=== PATIENT | male | born 1955 | race Caucasian/White ===

== ENCOUNTER → 2018-04-13 | Outpatient (CLI) | payer BC ==
--- NOTE | 2018-04-13 13:31 | CT ---
EXAMINATION TYPE: CT abdomen pelvis w con DATE OF EXAM: 04/13/2018 COMPARISON: None HISTORY: Abdominal pain and nausea CT DLP: 2656 mGycm, Automated Exposure Control for Dose Reduction was Utilized. CONTRAST: CT scan of the abdomen and pelvis is performed with oral and with IV Contrast, patient injected with 100 ml mL of Isovue 300. FINDINGS: LUNG BASES: Coronary artery calcification and/or stents is present RCA distribution. LIVER/GB: Liver is heterogeneously isodense relative to spleen consistent with diffuse fatty infiltra tion. PANCREAS: No significant abnormality is seen. SPLEEN: No significant abnormality is seen. ADRENALS: Left adrenal mass measures 2.7 x 2.0 cm axial image 28, Hounsfield units average 14 on post contrast injection. KIDNEYS: There is symmetric cortical medullary uptake and excretion from both kidneys without hydrone phrosis seen bilaterally there are subcentimeter hypodense lesions seen bilaterally favoring simple c ysts. There is nonspecific 2.1 cm slightly hypodense lesion laterally mid to lower pole level seen be st series 7 image 38 favoring proteinaceous cyst. Solid lesion at this level cannot be excluded. Foll ow-up is advised. BOWEL: Oral contrast reaches level of mid left colon. There is no suspicious small or large bowel dil atation seen. Diverticula are scattered throughout the colon most prominent in the sigmoid colon. No CT evidence for acute diverticulitis. PROSTATE/SEMINAL VESICLES: No gross abnormality seen. LYMPH NODES: No greater than 1cm abdominal or pelvic lymph nodes are appreciated. OSSEOUS STRUCTURES: No significant abnormality is seen. OTHER: Mild to moderate calcified plaque of aorta extends into branch vessels. Focal ectasia is seen. No greater than 3 cm aneurysmal change is present. IMPRESSION: 1. No bowel obstruction. No suspicious acute finding is seen to account for patient's symptoms. Diver ticulosis without convincing evidence for acute diverticulitis. 2. Nonspecific right renal lesion favor proteinaceous cyst cannot exclude solid mass or neoplasm. Fol low-up advised. 3. Nonspecific 2.7 cm left adrenal mass cannot rule out malignant etiology, follow-up adrenal protoco l CT or MRI is recommended.
== END | disposition home or self-care (01) ==
LOC: RADCTMAIN 10:01
PROVIDERS: ATTEND Family Medicine
DX: N28.9 Disorder of kidney and ureter, unspecified (principal); E27.9 Disorder of adrenal gland, unspecified
CPT/HCPCS: 82565; 84520; 74177; 36415; Q9967

== ENCOUNTER 2018-04-24 07:47 | Day surgery (SDC) | payer BC ==
[2018-04-20 15:10] VITALS: BMI 31.6
[2018-04-24 08:10] VITALS: TEMP 97.8
[2018-04-24] MEDS ORDERED: LACTATED RINGERS 1,000 ML IV ONE (08:10)
[2018-04-24 08:13] LABS: Glucose,Whole Blood 98 mg/dL (75-99)
[2018-04-24] MEDS ORDERED: LIDOCAINE 1% INJ 10MG/ML (20 ML MDV) ONE (09:07)
[2018-04-24] MEDS ORDERED: fentaNYL (PF) 50 MCG/ML 2 ML AMP ONE (09:07)
[2018-04-24] MEDS ORDERED: PROPOFOL 10 MG/ML 20 ML VIAL IV ONE (09:07)
[2018-04-24] MEDS ORDERED: MIDAZOLAM 2 MG/2 ML VIAL ONE (09:07)
--- NOTE | 2018-04-24 09:10 | P.GSHP ---
History of Present Illness H&P Date: 04/24/18 Chief Complaint: GI bleed This is a 62-year-old male who presents today for colonoscopy. Patient has history of GI bleed. He has had problems with diverticulosis in the past. 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, on antibiotics for infection(not sure what kind of infection) History of Any Multi-Drug Resistant Organisms: None Reported Past Surgical History: Hernia Repair, Tonsillectomy Past Anesthesia/Blood Transfusion Reactions: No Reported Reaction Smoking Status: Never smoker - Past Family History Father Family Medical History: Cancer Mother Family Medical History: Deep Vein Thrombosis (DVT) Medications and Allergies Home Medications Medication Instructions Recorded Confirmed Type Aspirin 325 mg PO DAILY 04/20/18 04/24/18 History Atorvastatin [Lipitor] 20 mg PO HS 04/20/18 04/24/18 History Losartan/Hydrochlorothiazide 1 each PO QAM 04/20/18 04/24/18 History [Hyzaar 100-25 Tablet] Sulfamethox(Dose Unknown) 1 tab PO BID 04/20/18 04/24/18 History amLODIPine [Norvasc] 10 mg PO HS 04/20/18 04/24/18 History metFORMIN HCL [Glucophage] 500 mg PO BID 04/20/18 04/24/18 History Allergies Allergy/AdvReac Type Severity Reaction Status Date / Time No Known Allergies Allergy Verified 04/24/18 08:01 Surgical - Exam Vital Signs Temp Pulse Resp BP Pulse Ox 97.8 F 76 18 153/95 98 04/24/18 08:08 04/24/18 08:08 04/24/18 08:08 04/24/18 08:08 04/24/18 08:08 - General well developed, no distress - Eyes PERRL - ENT normal pinna - Neck no masses - Respiratory normal expansion - Cardiovascular Rhythm: regular - Abdomen Abdomen: soft, non tender Assessment and Plan Assessment: GI bleed. We'll perform colonoscopy
--- NOTE | 2018-04-24 09:35 | P.OP ---
Date of Procedure: 04/24/18 Preoperative Diagnosis: GI bleed Postoperative Diagnosis: Severe diverticulosis of sigmoid and left colon Sigmoid polyp Left colon polyp Procedure(s) Performed: Colonoscopy Anesthesia: MAC Surgeon: Leighton Andrew Pathology: other (Sigmoid colon, multiple) Condition: stable Disposition: PACU Description of Procedure: The patient's placed on the endoscopy table in the lateral position. He received IV sedation. Digital rectal exam was performed which revealed no abnormalities. The flexible colonoscope was then placed patient anus and passed through the colon. The scope was then passed into the right colon secondary to a large amount of stool. Scope was withdrawn and the transverse colon was examined. There was scattered diverticuli transverse colon. The in the descending colon there was significant diverticular changes. There was a polyp seen this removed with a combination of the cold forcep and snare. forcep. Scope was brought back and the sigmoid colon there is extensive diverticular changes. Another polyp was seen in this is removed with the snare. Scope summer back the rectum this appeared normal. Scope withdrawn for patient.
[2018-04-24 09:46] VITALS: PULSE 55; RESP 16
[2018-04-24 09:58] VITALS: BP 137/86
--- NOTE | 2018-04-26 14:42 | CDI ---
Outpatient Documentation Clarification Form Date: 04/26/18 CDS/Sales Teacher Name: Elina Plummer Phone: If any questions, call Lynette Marr Case Management Rn at [phone] Patient Name: Mor Stevenson Admit Date: 04/24/18 Discharge Date: 04/24/18 ATTENTION: The [facility] Coding Staff appreciate your assistance in clarifying documentation. Please respond to the clarification below the line at the bottom and electronically sign. The [facility] Coding staff will review the response and follow-up if needed. Please note: Queries are made part of the Legal Health Record. If you have any questions, please contact the Case Management Rn. Dear Dr. Andrew, What is the source of the GI bleed? Possibly causes include diverticulosis or tubular adenoma. Multiple coding resources, that we are required to follow, state that the physician should identify a source and the lozenge maker may not assume. Thank you for your kind consideration. The bleeding was most likely due to the diverticulosis. However no active bleeding was seen MTDD
== END 2018-04-24 10:23 | disposition home or self-care (01) ==
LOC: ORWHC2ENDO 07:47
PROVIDERS: ATTEND Surgery
DX: K92.2 Gastrointestinal hemorrhage, unspecified (principal); D12.4 Benign neoplasm of descending colon; D12.5 Benign neoplasm of sigmoid colon; K57.31 Diverticulosis of large intestine without perforation or abscess with bleeding; E11.9 Type 2 diabetes mellitus without complications; K21.9 Gastro-esophageal reflux disease without esophagitis; E78.5 Hyperlipidemia, unspecified; I10 Essential (primary) hypertension; R01.1 Cardiac murmur, unspecified; M10.9 Gout, unspecified; B99.9 Unspecified infectious disease; Z79.84 Long term (current) use of oral hypoglycemic drugs; Z79.82 Long term (current) use of aspirin; Z79.899 Other long term (current) drug therapy
CPT/HCPCS: 88305; 45380; 45385; J2250; J2001; J3010; J2704

== ENCOUNTER → 2018-04-27 | Outpatient (CLI) | payer BC ==
--- NOTE | 2018-04-27 15:44 | MR ---
MR abdomen with and without contrast HISTORY: Change in bowel habits, Abdominal pain and nausea Multiplanar multisequence and postcontrast images obtained through the abdomen following [address] IV. Correlation to prior exam CT abdomen pelvis 04/13/2018 The gastric wall thickening seen on CT is again noted. Small bowel folds also appear thickened in the left upper quadrant. There is no ascites. Lung bases are clear. There may be a small hiatal hernia. The kidneys show multiple spherical foci of varying signal intensity on T1 and T2-weighted sequences, these areas may represent underlying proteinaceous cysts were simple cysts. Lower pole lesion at the right kidney measures approximately 2.8 cm, second immediately adjacent focus measuring 2 cm is note d and there is solid component that shows enhancement in the larger of the 2 lesions. No retroperiton eal adenopathy. The aorta is not dilated. The liver shows no mass, and it is enlarged. Gallbladder is normal. Pancreas and spleen are normal. S ignal drop in the out of phase imaging in the left adrenal gland is compatible with adenoma measures approximately 2.7 cm. Right adrenal gland is normal. Degenerative disc changes are noted in the visua lized spine. IMPRESSION: There may be an underlying enteritis with the small bowel, consider endoscopy for better evaluation of possible abnormal gastric wall thickening. Right renal mass is suspicious, consider uro logy consult. Left adrenal adenoma.
== END | disposition home or self-care (01) ==
LOC: RADMRIMAIN 09:37
PROVIDERS: ATTEND Family Medicine
DX: D35.02 Benign neoplasm of left adrenal gland (principal)
CPT/HCPCS: 74183; A9585

== ENCOUNTER → 2019-11-19 | Outpatient (CLI) | payer BC | END | disposition home or self-care (01) | LOC: LABWHC1 11:19 | PROVIDERS: ATTEND Internal Medicine Interventional Cardiology | DX: Z11.59 Encounter for screening for other viral diseases (principal) | CPT/HCPCS: 87635 ==

== ENCOUNTER 2019-11-21 06:24 | Day surgery (SDC) | payer BC ==
[~2019-11-21 06:24] MED LIST: ALPRAZolam 0.25 MG TAB PO PRN; ALPRAZolam 0.5 MG TAB PO PRN; ASPIRIN 325 MG TAB PO STA; ATORVASTATIN 80 MG TAB PO STA; NITROGLYCERIN SL TABS 0.4 MG TAB SUBLINGUAL PRN; SODIUM CHLORIDE 0.9% 1,000 ML in EMPTY BAG 1 BAG IV ONE
[2019-11-21 07:10] LABS: Glucose,Whole Blood 100 mg/dL (75-99)
[2019-11-21] MEDS ORDERED: SODIUM CHLORIDE 0.9% 1,000 ML IV ONE (07:18)
[2019-11-21] MEDS ORDERED: fentaNYL (PF) 50 MCG/ML 2 ML AMP IV ONE (07:30)
[2019-11-21] MEDS ORDERED: LIDOCAINE 1% INJ 10MG/ML (20 ML MDV) SQ ONE (07:35)
[2019-11-21] MEDS ORDERED: MIDAZOLAM 2 MG/2 ML VIAL IVP ONE (07:36)
[2019-11-21] MEDS ORDERED: VERAPAMIL SYRINGE (5 MG/10 ML) INTRAARTER ONE (07:36)
[2019-11-21 07:41] LABS: Basophils % (A) 1 %; Eosinophils # (A) 0.2 k/uL (0-0.7); Eosinophils % (A) 3 %; HCT 46.4 % (39.0-53.0); HGB 15.5 gm/dL (13.0-17.5); Lymphocytes # (A) 2.5 k/uL (1.0-4.8); Lymphocytes % (A) 31 %; MCH 29.6 pg (25.0-35.0); MCHC 33.4 g/dL (31.0-37.0); MCV 88.6 fL (80.0-100.0); Mean Platelet Volume 8.2; Monocytes # (A) 0.6 k/uL (0-1.0); Monocytes % (A) 8 %; Neutrophils # (A) 4.6 k/uL (1.3-7.7); Neutrophils % (A) 55 %; Platelet Count 183 k/uL (150-450); RBC 5.24 m/uL (4.30-5.90); RDW 14.1 % (11.5-15.5); WBC 8.2 k/uL (3.8-10.6)
[2019-11-21] MEDS ORDERED: BIVALIRUDIN BOLUS 250 MG/50 ML IV ONE (07:47)
[2019-11-21] MEDS ORDERED: BIVALIRUDIN 250 MG in SODIUM CHLORIDE 0.9% 50 ML IV ONE (07:51)
[2019-11-21 07:52] LABS: Calcium 8.9 mg/dL (8.4-10.2)
[2019-11-21] MEDS ORDERED: PRASUGREL 10 MG TAB PO ONE (07:52)
[2019-11-21] MEDS ORDERED: IOPAMIDOL-370 125ML BTL INJ ONE (08:01)
[2019-11-21] MEDS ORDERED: NITROGLYCERIN 1000MCG/10ML SYRINGE INTRACORON ONE (08:07)
[2019-11-21] MEDS ORDERED: IOPAMIDOL-370 100ML BTL INJ ONE (08:27)
[2019-11-21] MEDS ORDERED: MAG HYDROX/AL HYDROX/SIMETH 30 ML CUP PO PRN (08:44)
[2019-11-21] MEDS ORDERED: NITROGLYCERIN SL TABS 0.4 MG TAB SUBLINGUAL PRN (08:44)
[2019-11-21] MEDS ORDERED: RX INFO: IV CONTRAST WAS GIVEN 1 EACH MISC MISCELLANE PRN (08:44)
[2019-11-21] MEDS ORDERED: ATROPINE SULFATE 0.1 MG/ML 10ML SYRINGE IV PRN (08:44)
[2019-11-21] MEDS ORDERED: ZOLPIDEM 5 MG TAB PO PRN (08:44)
[2019-11-21] MEDS ORDERED: SODIUM CHLORIDE 0.9% 1,000 ML IV SCH (08:45)
--- NOTE | 2019-11-21 09:56 | CC ---
CARDIAC CATHETERIZATION REPORT Mr. Moore is a 64-year-old male with known history of hypertension, hyperlipidemia, diabetes mellitus, and a family history of premature coronary artery disease who has been complaining of progressive exertional chest discomfort as well as dyspnea on exertion. In view of that, recommendation made regarding cardiac catheterization. The procedures, risks, and complication were discussed with the patient, who was in full understanding and agreement. PROCEDURE: Patient was brought to the hemodialysis lab technician in a fasting semi-sedated state after receiving fentanyl and Benadryl and achieving moderate conscious sedated state. Using Xylocaine anesthesia and Seldinger technique, a 6-Georgian sheath was introduced in the right radial artery. Selective right and left coronary angiography performed using 5-Georgian 3.5 bend right and left Luz catheter. Multiple views of the coronary artery including hemiaxial views were obtained. Following that, a 6-Georgian FR4 guiding catheter was introduced into the system and the aortic valve was crossed and left ventricular end-diastolic pressure was calculated. Following that, angioplasty and stenting was performed. Of note, the patient received intra-arterial verapamil as well as intravenous Angiomax per protocol at the start of this angioplasty. FINDINGS: FLUOROSCOPY: There was severe calcification involving all the coronary arteries. LEFT MAIN: This is a short size vessel, bifurcating into left circumflex, left anterior descending artery. Left main coronary artery has no evidence of high-grade stenosis. LEFT ANTERIOR DESCENDING ARTERY: This is a large-sized vessel, reaching toward the apex with a wraparound apex segment giving rise to 2 diagonal branches. The first one is very proximal, the second diagonal branch is small in caliber. The left anterior descending artery after the diagonal branch at the takeoff and at the takeoff of the first septal warehouse team leader, has an 80% stenosis. The rest of the vessel has no high-grade stenosis. LEFT CIRCUMFLEX: This is a nondominant vessel, moderate in caliber, giving rise to 2 moderate to small obtuse marginal branch. The left circumflex proximally has 20% to 30% plaque. The rest of the vessel has no high-grade stenosis. RIGHT CORONARY ARTERY: This is a large dominant vessel, bifurcating into PDA, posterolateral segment and branches. The right coronary artery is calcified and the mid segment has a 99% stenosis. There is another 40% to 50% plaque in the mid segment. There is slow flow into the large PDA and PLV. COLLATERALS: There is collaterals from the left coronary system toward the right distal coronary artery. HEMODYNAMICS: There was a 20 mm gradient across the aortic valve. The ventricular end- diastolic pressure was 10 mmHg. LEFT VENTRICULOGRAM: Left ventricular was not performed. CONCLUSION: 1. Calcified coronary arteries. 2. Critical stenosis involving the proximal right coronary artery. 3. Significant stenosis in the proximal LAD. 4. Mild disease in the left circumflex. 5. Mild aortic stenosis. RECOMMENDATION: In view of finding anatomy, I recommend proceeding with angioplasty and stenting of the right coronary artery. The procedures, risks, and complication were discussed with the patient who is in full understanding and agreement. MMODL / IJN: [id number] /
--- NOTE | 2019-11-21 11:16 | PTCA ---
PERCUTANEOUSTRANS CORORONARY ANGIOGRAPHY Mr. Stevenson is a 64-year-old male with known history of hypertension, hyperlipidemia, diabetes mellitus, and a family history of premature coronary artery disease who presented with symptoms of progressive exertional chest discomfort and dyspnea on exertion. He underwent cardiac catheterization, was found to have critical stenosis involving the proximal right coronary artery and significant disease in the proximal LAD. The option of surgery versus coronary angioplasty and stenting were discussed with the patient who is in favor proceeding with angioplasty. The procedures, risks, and complication were discussed with the patient, who is in full understanding and agreement. PROCEDURE: A 6-Grenadian FR4 guiding catheter introduced into the system after cannulating the right coronary ostium, a 0.014 balanced medium weight J-wire was advanced across the lesion, positioned distally, then a 3.0 x 15 mm Trek balloon was advanced and one inflation at 10 atmospheres was done, following that the balloon was removed and another 0.014 balanced medium weight J-wire was advanced next to the first one in a leigh ann fashion and positioned distally. Subsequently, a 4.0 x 18 mm Xience Muriel stent was advanced, deployed and postdilated at 18 atmospheres. Following that, the balloon was removed and a 4.0 x 12 mm Xience Muriel stent was deployed proximal to the first one and post dilated at 16 atmospheres. Following that, a 4.5 x 15 mm NC Trek balloon was advanced and one inflation was done at 12 atmospheres. After the last inflation, after appropriate wait, the balloon and the guidewire were withdrawn back in the guiding catheter. Images were obtained and repeated. Those images reveal stable successful stenting. At that point, the guiding catheter, the balloon and the guidewire were removed. The sheath was removed, hemostasis was obtained with deployment of a TR band. There was no immediate complication. The patient was returned to his room in stable condition. Patient received Angiomax per protocol as well as oral loading dose of Effient. RESULTS: Successful stenting of the proximal right coronary artery with reduction of stenosis from 99% to less than 5%. RECOMMENDATION: Patient will be continued on aspirin, Effient, beta yamini, DANILO inhibitor, statin. The importance of dual antiplatelet treatment were discussed with the patient and his family and they are in full understanding and agreement. He will be readmitted electively to undergo stenting of the LAD. MMODL / IJN: [id number] /
--- NOTE | 2019-11-21 11:19 | LTR ---
DATE OF SERVICE: 11/21/2019 RE: Graham Mor Dear Dr. Ruano; I had pleasure to perform coronary angiography and angioplasty and stenting on Mr. Stevenson at [facility] on November 21, 2019 and a full copy of the procedure note will be forwarded to you. In brief, he underwent cardiac catheterization, was found to have calcified coronary artery with significant obstructive disease involving the proximal right coronary artery as well as the proximal LAD and he underwent successful stenting of the right coronary artery. He will be readmitted electively to undergo stenting of the LAD. In the meantime, I will continue on dual antiplatelet treatment. I will keep you updated on his progress and than you again for allowing me to participate in this patient's care. Please feel free to call for any questions. Sincerely yours, MD MARCO ANTONIO Muniz / RODOLFO: [id number] /
[2019-11-21] MEDS: ISOSORBIDE MONONITRATE ER 30 MG TAB.ER.24H PO SCH (12:02)
[2019-11-21] MEDS: HYDROCHLOROTHIAZIDE 25 MG TAB PO SCH (12:02)
[2019-11-21 14:06] VITALS: BMI 31.2
[2019-11-21 17:16] LABS: Glucose,Whole Blood 93 mg/dL (75-99)
[2019-11-21] MEDS: LOSARTAN 50 MG TAB PO SCH ×2 (19:47→19:50)
[2019-11-21 20:18] LABS: Glucose,Whole Blood 98 mg/dL (75-99)
[2019-11-21] MEDS ORDERED: ATORVASTATIN 80 MG TAB PO SCH (21:00)
[2019-11-21] MEDS ORDERED: amLODIPine 10 MG TAB PO SCH (21:00)
[2019-11-22 06:05] LABS: Glucose,Whole Blood 105 mg/dL (75-99)
[2019-11-22] MEDS: ISOSORBIDE MONONITRATE ER 30 MG TAB.ER.24H PO SCH (06:44)
[2019-11-22] MEDS: HYDROCHLOROTHIAZIDE 25 MG TAB PO SCH (06:45)
[2019-11-22 08:06] VITALS: BP 148/88; PULSE 66; RESP 20; TEMP 98.2
[2019-11-22 08:22] LABS: Calcium 9.4 mg/dL (8.4-10.2)
[2019-11-22] MEDS ORDERED: PRASUGREL 10 MG TAB PO SCH (09:00)
[2019-11-22] MEDS ORDERED: ASPIRIN 81 MG PO SCH (09:00)
--- NOTE | 2019-11-22 09:29 | PN ---
PROGRESS NOTE Mr. Stevenson is a 64-year-old male with known history of hypertension, hyperlipidemia, diabetes mellitus, who presented with symptoms of angina pectoris, underwent cardiac catheterization was found to have significant obstructive disease involving the right coronary artery as well as the LAD. He underwent successful stenting of the RCA. He is doing well this morning. He denies any chest pain. No dizziness. No palpitation. He is ambulating without difficulty. He continues to be on aspirin once a day, Effient 10 mg daily, Lipitor 80 mg daily, isosorbide mononitrate 30 mg daily, hydrochlorothiazide 25 mg daily, amlodipine 10 mg daily. PHYSICAL EXAMINATION: Blood pressure running in the 140s with the heart rate in the 60s. LUNGS: Clear. HEART: Regular rate and rhythm, S1, S2. No S3 with systolic ejection murmur heard at the base 2/6, no diastolic murmur, no rub. ABDOMEN: Soft, nontender. EXTREMITIES: No edema, right radial pulse intact. EKG revealed no acute changes. BUN and creatinine 17 and 1.13 and potassium 4.0. IMPRESSION: 1. Status post stenting of the right coronary artery. 2. Obstructive disease involving the LAD. 3. Hypertension. 4. Hyperlipidemia. 5. Diabetes mellitus. RECOMMENDATION: Patient will be discharged home today and readmitted electively to undergo stenting of the LAD. MMODL / IJN: [id number] /
[2019-11-22] MEDS: LOSARTAN 50 MG TAB PO SCH (10:30)
== END 2019-11-22 11:25 | disposition home or self-care (01) ==
LOC: CATHCVL 06:24 → 3SCARD 08:25 → CATHCVL 11-22 11:25
PROVIDERS: ATTEND Internal Medicine Interventional Cardiology
DX: I25.110 Atherosclerotic heart disease of native coronary artery with unstable angina pectoris (principal); I25.84 Coronary atherosclerosis due to calcified coronary lesion; I35.0 Nonrheumatic aortic (valve) stenosis; I10 Essential (primary) hypertension; E78.2 Mixed hyperlipidemia; E78.00 Pure hypercholesterolemia, unspecified; E11.9 Type 2 diabetes mellitus without complications; Z87.891 Personal history of nicotine dependence; Z82.49 Family history of ischemic heart disease and other diseases of the circulatory system; Z79.84 Long term (current) use of oral hypoglycemic drugs; Z79.82 Long term (current) use of aspirin; Z79.899 Other long term (current) drug therapy
CPT/HCPCS: 93458; 85347; 80048 ×2; 85025; C9600; C1769 ×2; C1887; C1725 ×2; C1874; C1894; J2250; J2001; J3010; J0583; Q9967 ×2

== ENCOUNTER → 2019-12-06 | Outpatient (CLI) | payer BC | END | disposition home or self-care (01) | LOC: LABWHC1 08:09 | PROVIDERS: ATTEND Internal Medicine Interventional Cardiology | DX: Z11.59 Encounter for screening for other viral diseases (principal) ==

== ENCOUNTER 2019-12-10 07:49 | Day surgery (SDC) | payer BC ==
[2019-12-06 16:00] VITALS: BMI 31.2
[2019-12-10] MEDS ORDERED: ASPIRIN 81 MG ONE (08:10)
[2019-12-10 08:24] LABS: Glucose,Whole Blood 101 mg/dL (75-99)
[2019-12-10 08:28] VITALS: TEMP 98.9
[2019-12-10] MEDS ORDERED: VERAPAMIL 2.5 MG/ML 2 ML AMP ONE (08:38)
[2019-12-10] MEDS ORDERED: LIDOCAINE 1% INJ 10MG/ML (20 ML MDV) ONE (08:38)
[2019-12-10] MEDS ORDERED: fentaNYL (PF) 50 MCG/ML 2 ML AMP ONE (08:38)
[2019-12-10 08:47] LABS: Calcium 9.5 mg/dL (8.4-10.2); Potassium 4.4 mmol/L (3.5-5.1)
[2019-12-10] MEDS ORDERED: fentaNYL (PF) 50 MCG/ML 2 ML AMP IV ONE (09:17)
[2019-12-10] MEDS ORDERED: LIDOCAINE 1% INJ 10MG/ML (20 ML MDV) SQ ONE (09:20)
[2019-12-10] MEDS ORDERED: MIDAZOLAM 2 MG/2 ML VIAL IV ONE (09:21)
[2019-12-10] MEDS ORDERED: VERAPAMIL SYRINGE (5 MG/10 ML) INTRAARTER ONE (09:22)
[2019-12-10] MEDS ORDERED: BIVALIRUDIN BOLUS 250 MG/50 ML IV ONE (09:27)
[2019-12-10] MEDS ORDERED: BIVALIRUDIN 250 MG in SODIUM CHLORIDE 0.9% 50 ML IV ONE (09:32)
[2019-12-10] MEDS ORDERED: NITROGLYCERIN 1000MCG/10ML SYRINGE INTRACORON ONE (09:39)
[2019-12-10] MEDS ORDERED: IOPAMIDOL-370 125ML BTL INJ ONE (09:46)
[2019-12-10] MEDS ORDERED: IOPAMIDOL-370 100ML BTL INJ ONE (09:51)
[2019-12-10] MEDS ORDERED: NITROGLYCERIN SL TABS 0.4 MG TAB SUBLINGUAL PRN ×2 (10:10→10:11)
[2019-12-10] MEDS ORDERED: ATROPINE SULFATE 0.1 MG/ML 10ML SYRINGE IV PRN (10:10)
[2019-12-10] MEDS ORDERED: ZOLPIDEM 5 MG TAB PO PRN (10:10)
[2019-12-10] MEDS ORDERED: MAG HYDROX/AL HYDROX/SIMETH 30 ML CUP PO PRN (10:10)
[2019-12-10] MEDS ORDERED: RX INFO: IV CONTRAST WAS GIVEN 1 EACH MISC MISCELLANE PRN (10:10)
[2019-12-10] MEDS ORDERED: SODIUM CHLORIDE 0.9% 1,000 ML IV SCH (10:15)
[2019-12-10 10:50] VITALS: PULSE 60
--- NOTE | 2019-12-10 11:14 | PTCA ---
PERCUTANEOUSTRANS CORORONARY ANGIOGRAPHY Mr. Stevenson is a 64-year-old male with known history of hypertension, hyperlipidemia, diabetes mellitus, who recently presented with symptoms of new onset angina pectoris. He underwent cardiac catheterization and was found to have critical stenosis involving the RCA and the LAD, underwent successful stenting of the RCA and admitted electively to undergo stenting of the LAD. The procedures, risks, and complication were discussed with the patient who is in full understanding and agreement. PROCEDURE: Patient was brought to record label internship in a fasting semi-sedated state after receiving fentanyl and Benadryl and achieving moderate conscious sedated state. Using Xylocaine anesthesia and Seldinger technique, a 6-Rwandan sheath was introduced in the right radial artery. A 6-Rwandan EBU 3.75 guiding catheter introduced into the system after cannulating the left main. A 0.014 balanced medium weight J-wire was advanced across the lesion, positioned in the distal LAD, subsequently a 2.75 x 12 mm Trek balloon was advanced 1 inflation at 8 atmospheres was done. Following that, the balloon was removed and a 3.25 x 18 mm Xience Muriel stent was deployed, post-dilated at 16 atmospheres. After the last inflation, after appropriate wait, the balloon and the guidewire were withdrawn back in the guiding catheter. Images were obtained and repeated. Those images reveal stable successful stenting. At that point, the guiding catheter, the balloon and the guidewire were removed. The sheath was removed, hemostasis was obtained and deployment of a TR band. There was no immediate complication. Patient was returned to his room in stable condition. Of note, the patient had no chest discomfort. He had mild EKG changes that resolved at the end the procedure. He received Angiomax per protocol and was continued on Effient. RESULTS: Successful stenting of the proximal LAD with reduction of stenosis from 80% to 0%. RECOMMENDATION: Patient will be continued on aspirin, Effient, beta yamini, DANILO inhibitor and statin. The importance of dual antiplatelet treatment were discussed with the patient and his family who are in full understanding and agreement. Duration of the procedure is 33 minutes. MMODL / IJN: [id number] /
--- NOTE | 2019-12-10 11:14 | LTR ---
DATE OF SERVICE: 12/10/2019 RE: Mor Stevenson Dear Dr. Ruano; I had the pleasure to perform coronary angioplasty and stenting on Mr. Stevenson at [facility] on December 10, 2019 and a full copy of the procedure note will be forwarded to you. In brief, he underwent successful stenting of his proximal LAD. I am hopeful that this procedure will stabilize his status and thank you again for allowing me to participate in this patient's care. Please feel free to call for any questions. Sincerely yours, MD RAMSEY MunizL / JOSUEN: [id number] /
[2019-12-10 11:50] VITALS: BP 125/80; RESP 18
[2019-12-10] MEDS ORDERED: LOSARTAN 50 MG TAB PO SCH (21:00)
[2019-12-10] MEDS ORDERED: ATORVASTATIN 80 MG TAB PO SCH (21:00)
[2019-12-11] MEDS ORDERED: ASPIRIN 81 MG PO SCH (09:00)
[2019-12-11] MEDS ORDERED: HYDROCHLOROTHIAZIDE 25 MG TAB PO SCH (09:00)
[2019-12-11] MEDS ORDERED: PRASUGREL 10 MG TAB PO SCH ×2 (09:00→10:11)
== END 2019-12-10 14:58 | disposition home or self-care (01) ==
LOC: CATHCVL 07:49
PROVIDERS: ATTEND Internal Medicine Interventional Cardiology
DX: I25.10 Atherosclerotic heart disease of native coronary artery without angina pectoris (principal); I25.84 Coronary atherosclerosis due to calcified coronary lesion; I10 Essential (primary) hypertension; I35.0 Nonrheumatic aortic (valve) stenosis; E11.9 Type 2 diabetes mellitus without complications; E78.2 Mixed hyperlipidemia; Z87.891 Personal history of nicotine dependence; Z95.5 Presence of coronary angioplasty implant and graft; Z82.49 Family history of ischemic heart disease and other diseases of the circulatory system; Z79.82 Long term (current) use of aspirin; Z79.899 Other long term (current) drug therapy
CPT/HCPCS: 85347; 80048; C9600; C1769 ×2; C1887; C1725; C1874; C1894; J2250; J2001; J3010; J0583; Q9967 ×2

== ENCOUNTER 2020-06-22 10:37 | Emergency (ER) | payer BC ==
[2020-06-22 10:44] VITALS: RESP 18
[2020-06-22] MEDS ORDERED: SODIUM CHLORIDE 0.9% 1,000 ML IV STA (11:11)
--- NOTE | 2020-06-22 11:21 | ED ---
Nausea/Vomiting/Diarrhea HPI - General Source: patient Mode of arrival: ambulatory Limitations: no limitations <Nallely Thao - Last Filed: 06/23/20 10:46> <Candi Sánchez - Last Filed: 06/23/20 13:19> - General Chief complaint: Nausea/Vomiting/Diarrhea Stated complaint: Covid symptoms Time Seen by Provider: 06/22/20 10:46 - History of Present Illness Initial comments: Patient is a 65-year-old male, history of heart disease, diabetes, presenting to the emergency Department with complaints of intermittent nausea and vomiting for the last 5 days. Patient also believes he's had a low-grade temperature as w ell. He has not had any Tylenol or Motrin today. Patient states his symptoms started on Monday and he has not been able to eat or drink very much. He denies any abdominal pain, some occasional cramping. He denies any chest pain, shortness of breath, cough. He denies any diarrhea, dysuria. He denies history of asthma or COPD. Patient states he did come in contact with a possible covid case at work last week. He denies any other complaints at this time. Upon arrival to the ER, his vital signs are stable. (Nallely Thao) - Related Data Home Medications Medication Instructions Recorded Confirmed metFORMIN HCL [Glucophage] 500 mg PO BID 04/20/18 06/22/20 Losartan Potassium [Cozaar] 100 mg PO DAILY 11/19/19 06/22/20 hydroCHLOROthiazide 25 mg PO DAILY 11/19/19 06/22/20 Atorvastatin [Lipitor] 80 mg PO DAILY 06/22/20 06/22/20 amLODIPine [Norvasc] 5 mg PO DAILY 06/22/20 06/22/20 Previous Rx's Medication Instructions Recorded Nitroglycerin Sl Tabs [Nitrostat] 0.4 mg SUBLINGUAL Q5M PRN #25 tab 11/22/19 Prasugrel [Effient] 10 mg PO DAILY #90 tab 11/22/19 Allergies Allergy/AdvReac Type Severity Reaction Status Date / Time No Known Allergies Allergy Verified 06/22/20 12:15 Review of Systems ROS Other: All systems not noted in ROS Statement are negative. <Nallely Thao - Last Filed: 06/23/20 10:46> ROS Other: All systems not noted in ROS Statement are negative. <aCndi Sánchez - Last Filed: 06/23/20 13:19> ROS Statement: Those systems with pertinent positive or pertinent negative responses have been documented in the HPI. 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, sinus problems, "spot on kidney", History of Any Multi-Drug Resistant Organisms: None Reported Past Surgical History: Heart Catheterization With Stent, Hernia Repair, Tonsillectomy Additional Past Surgical History / Comment(s): Heart cath 11/21/19- 2 stents RCA Past Anesthesia/Blood Transfusion Reactions: No Reported Reaction Past Psychological History: No Psychological Hx Reported Smoking Status: Never smoker Past Alcohol Use History: None Reported Past Drug Use History: Marijuana - Past Family History Father Family Medical History: Cancer Mother Family Medical History: Deep Vein Thrombosis (DVT) Additional Family Medical History / Comment(s): blood clots -not sure where <Nallely Thao - Last Filed: 06/23/20 10:46> General Exam Limitations: no limitations <Nallely Thao - Last Filed: 06/23/20 10:46> - General Exam Comments Initial Comments: GENERAL: Patient is well-developed and well-nourished. Patient is nontoxic and in no acute distress. HEAD: Atraumatic, normocephalic. EYES: Pupils equal round and reactive to light, extraocular movements intact, sclera anicteric, conjunctiva are normal. Eyelids were unremarkable. ENT: TMs normal, nares patent, oropharynx clear without exudates. Moist mucous membranes. NECK: Normal range of motion, supple without lymphadenopathy or JVD. LUNGS: Unlabored respirations. Breath sounds clear to auscultation bilaterally and equal. No wheezes rales or rhonchi. HEART: Regular rate and rhythm without murmurs, rubs or gallops. ABDOMEN: Soft, nontender, normoactive bowel sounds. No guarding, no rebound. No masses appreciated. : Deferred MUSCULOSKELETAL: Normal extremities with adequate strength and normal range of motion, no pitting or edema. No clubbing or cyanosis. NEUROLOGICAL: Patient is alert and oriented x 3. Motor and sensory are also intact. Cranial nerves II through XII grossly intact. Symmetrical smile. Normal speech, normal gait. PSYCH: Normal mood, normal affect. SKIN: Warm, Dry, normal turgor, no rashes or lesions noted. (Nallely Thao) Course Vital Signs 06/22/20 06/22/20 06/22/20 10:39 12:55 12:58 Temperature 98.7 F 100.6 F H Pulse Rate 68 64 Respiratory 18 18 Rate Blood Pressure 127/93 135/89 O2 Sat by Pulse 99 98 Oximetry Medical Decision Making - Lab Data Result diagrams: 06/22/20 11:26 06/22/20 11:26 <Nallely Thao - Last Filed: 06/23/20 10:46> - Lab Data Result diagrams: 06/22/20 11:26 06/22/20 11:26 <Candi Sánchez - Last Filed: 06/23/20 13:19> - Medical Decision Making Patient is a 65-year-old male presenting with nausea, vomiting intermittently for 5 days. He also admits to low-grade fevers. His vital signs are stable here, afebrile. His exam is unremarkable, no abdominal tenderness. Patient's white count is mildly elevated at 11.2, kidney function is stable, lactic acid came back elevated at 2.4, urine shows no evidence of infection. Covid test is pending at this time. He received a liter and half of fluids and feels improvement of symptoms. We did recheck his vitals and he did come back with a temperature of 100.9. He was given some Tylenol. I discussed with patient that there is a possibility this is a Covid infection or a viral bug. He can continue with Tylenol as needed for the fevers. He can follow up with his PCP if symptoms persist. Strict return parameters were discussed with the patient and he verbalized understanding. Case discussed with Dr. Sánchez. (Nallely Lau) I was available for consultation in the emergency department. The history and physical exam were done by the midlevel provider. I was consulted for this patients care. I reviewed the case with the midlevel provider and based on their presentation of the patient, I agree with the assessment, medical decision making and plan of care as documented. Chart was dictated using Dragon dictation software. Attempts were made to correct any dictation errors however some typographical errors may persist. Patient was seen during a national state of emergency due to the Covid-19 pandemic. (Candi Sáncehz) - Lab Data Lab Results 06/22/20 06/22/20 06/22/20 Range/Units 11:26 11:26 11:26 WBC 11.2 H (3.8-10.6) k/uL RBC 6.17 H (4.30-5.90) m/uL Hgb 17.8 H (13.0-17.5) gm/dL Hct 52.9 (39.0-53.0) % MCV 85.7 (80.0-100.0) fL MCH 28.9 (25.0-35.0) pg MCHC 33.7 (31.0-37.0) g/dL RDW 14.0 (11.5-15.5) % Plt Count 225 (150-450) k/uL MPV 8.6 Neutrophils % 71 % Lymphocytes % 17 % Monocytes % 9 % Eosinophils % 1 % Basophils % 0 % Neutrophils # 7.9 H (1.3-7.7) k/uL Lymphocytes # 1.9 (1.0-4.8) k/uL Monocytes # 1.0 (0-1.0) k/uL Eosinophils # 0.1 (0-0.7) k/uL Basophils # 0.0 (0-0.2) k/uL Sodium 135 L (137-145) mmol/L Potassium 3.5 (3.5-5.1) mmol/L Chloride 97 L (98-107) mmol/L Carbon Dioxide 28 (22-30) mmol/L Anion Gap 10 mmol/L BUN 34 H (9-20) mg/dL Creatinine 1.40 H (0.66-1.25) mg/dL Est GFR (CKD-EPI)AfAm 61 (>60 ml/min/1.73 sqM) Est GFR (CKD-EPI)NonAf 53 (>60 ml/min/1.73 sqM) Glucose 110 H (74-99) mg/dL Lactic Ac Sepsis Rflx Plasma Lactic Acid Víctor 2.4 H* (0.7-2.0) mmol/L Calcium 9.9 (8.4-10.2) mg/dL Total Bilirubin 1.2 (0.2-1.3) mg/dL AST 30 (17-59) U/L ALT 30 (4-49) U/L Alkaline Phosphatase 75 (38-126) U/L Total Protein 8.1 (6.3-8.2) g/dL Albumin 4.7 (3.5-5.0) g/dL Urine Color Urine Appearance (Clear) Urine pH (5.0-8.0) Ur Specific [place] (1.001-1.035) Urine Protein (Negative) Urine Glucose (UA) (Negative) Urine Ketones (Negative) Urine Blood (Negative) Urine Nitrite (Negative) Urine Bilirubin (Negative) Urine Urobilinogen (<2.0) mg/dL Ur Leukocyte Esterase (Negative) Urine RBC (0-5) /hpf Urine WBC (0-5) /hpf Ur Squamous Epith Cells (0-4) /hpf Hyaline Casts (0-2) /lpf Urine Mucus (None) /hpf Coronavirus (PCR) (Not Detected) 06/22/20 06/22/20 06/22/20 Range/Units 11:58 11:58 12:07 WBC (3.8-10.6) k/uL RBC (4.30-5.90) m/uL Hgb (13.0-17.5) gm/dL Hct (39.0-53.0) % MCV (80.0-100.0) fL MCH (25.0-35.0) pg MCHC (31.0-37.0) g/dL RDW (11.5-15.5) % Plt Count (150-450) k/uL MPV Neutrophils % % Lymphocytes % % Monocytes % % Eosinophils % % Basophils % % Neutrophils # (1.3-7.7) k/uL Lymphocytes # (1.0-4.8) k/uL Monocytes # (0-1.0) k/uL Eosinophils # (0-0.7) k/uL Basophils # (0-0.2) k/uL Sodium (137-145) mmol/L Potassium (3.5-5.1) mmol/L Chloride (98-107) mmol/L Carbon Dioxide (22-30) mmol/L Anion Gap mmol/L BUN (9-20) mg/dL Creatinine (0.66-1.25) mg/dL Est GFR (CKD-EPI)AfAm (>60 ml/min/1.73 sqM) Est GFR (CKD-EPI)NonAf (>60 ml/min/1.73 sqM) Glucose (74-99) mg/dL Lactic Ac Sepsis Rflx Y Plasma Lactic Acid Víctor (0.7-2.0) mmol/L Calcium (8.4-10.2) mg/dL Total Bilirubin (0.2-1.3) mg/dL AST (17-59) U/L ALT (4-49) U/L Alkaline Phosphatase (38-126) U/L Total Protein (6.3-8.2) g/dL Albumin (3.5-5.0) g/dL Urine Color Yellow Urine Appearance Clear (Clear) Urine pH 6.0 (5.0-8.0) Ur Specific [place] 1.018 (1.001-1.035) Urine Protein 3+ H (Negative) Urine Glucose (UA) Negative (Negative) Urine Ketones Negative (Negative) Urine Blood Small H (Negative) Urine Nitrite Negative (Negative) Urine Bilirubin Negative (Negative) Urine Urobilinogen <2.0 (<2.0) mg/dL Ur Leukocyte Esterase Negative (Negative) Urine RBC 4 (0-5) /hpf Urine WBC 3 (0-5) /hpf Ur Squamous Epith Cells <1 (0-4) /hpf Hyaline Casts 1 (0-2) /lpf Urine Mucus Rare H (None) /hpf Coronavirus (PCR) Not Detected (Not Detected) Disposition Is patient prescribed a controlled substance at d/c from ED?: No <Nallely Thao - Last Filed: 06/23/20 10:46> <Candi Sánchez - Last Filed: 06/23/20 13:19> Clinical Impression: Dehydration, Nausea and vomiting Disposition: HOME SELF-CARE Condition: Stable Instructions (If sedation given, give patient instructions): Acute Nausea and Vomiting (ED) Additional Instructions: Please return to the Emergency Department if symptoms worsen or any other concerns. Covid test is pending. Labs today are normal. Continue with Tylenol or Motrin for discomfort or fevers. Follow-up with your PCP. Referrals: Antolin Ruano DO [Primary Care Provider] - 1-2 days
[2020-06-22 11:47] LABS: Basophils % (A) 0 %; Eosinophils # (A) 0.1 k/uL (0-0.7); Eosinophils % (A) 1 %; HCT 52.9 % (39.0-53.0); HGB 17.8 gm/dL (13.0-17.5); Lymphocytes # (A) 1.9 k/uL (1.0-4.8); Lymphocytes % (A) 17 %; MCH 28.9 pg (25.0-35.0); MCHC 33.7 g/dL (31.0-37.0); MCV 85.7 fL (80.0-100.0); Mean Platelet Volume 8.6; Monocytes % (A) 9 %; Neutrophils # (A) 7.9 k/uL (1.3-7.7); Neutrophils % (A) 71 %; Platelet Count 225 k/uL (150-450); RBC 6.17 m/uL (4.30-5.90); WBC 11.2 k/uL (3.8-10.6)
[2020-06-22 12:07] LABS: Albumin 4.7 g/dL (3.5-5.0); Calcium 9.9 mg/dL (8.4-10.2); Potassium 3.5 mmol/L (3.5-5.1); Total Bilirubin 1.2 mg/dL (0.2-1.3); Total Protein 8.1 g/dL (6.3-8.2)
[2020-06-22] MEDS ORDERED: SODIUM CHLORIDE 0.9% 500 ML 500 ML IV STA (12:11)
[2020-06-22 12:57] VITALS: BP 135/89; PULSE 64
[2020-06-22 12:59] VITALS: TEMP 100.6
[2020-06-22] MEDS ORDERED: ACETAMINOPHEN TAB 500 MG TAB PO STA (13:42)
[2020-06-22 14:34] LABS: Appearance,Urine Clear (Clear); Bilirubin,Urine Negative (Negative); Blood,Urine Small (Negative); Color,Urine Yellow; Glucose,Urine (UA) Negative (Negative); Hyaline Casts,Urine 1 /lpf (0-2); Ketones,Urine Negative (Negative); Leukocyte Esterase,Urine Negative (Negative); Mucus,Urine Rare /hpf; Nitrite,Urine Negative (Negative); Protein,Urine 3+ (Negative); RBC,Urine 4 /hpf (0-5); Specific Gravity,Urine 1.018 (1.001-1.035); Squamous Epithelial Cell,Urine <1 /hpf (0-4); Urobilinogen,Urine <2.0 mg/dL (<2.0); WBC,Urine 3 /hpf (0-5)
== END 2020-06-22 14:01 | disposition home or self-care (01) ==
LOC: EC 10:37
DX: R11.2 Nausea with vomiting, unspecified (principal); R50.9 Fever, unspecified; E86.0 Dehydration; I10 Essential (primary) hypertension; E11.9 Type 2 diabetes mellitus without complications; I20.9 Angina pectoris, unspecified; E78.5 Hyperlipidemia, unspecified; Z79.84 Long term (current) use of oral hypoglycemic drugs; Z79.899 Other long term (current) drug therapy; Z20.828 Contact with and (suspected) exposure to other viral communicable diseases
CPT/HCPCS: 36415; 80053; 83605; 85025; 81001; 99284; 96360; 96361; U0003

== ENCOUNTER 2022-09-19 06:47 | Day surgery (SDC) | payer MEDICARE, OTHER ==
[~2022-09-19 06:47] MED LIST changes: -ASPIRIN 325 MG TAB PO STA; -ATORVASTATIN 80 MG TAB PO STA; +HEPARIN SODIUM,PORCINE 10,000 UNIT in SODIUM CHLORIDE 0.9% 1,000 ML IRRIGATION PRN; +HEPARIN SODIUM,PORCINE 2,500 UNIT in SODIUM CHLORIDE 0.9% 250 ML IRRIGATION PRN; -SODIUM CHLORIDE 0.9% 1,000 ML in EMPTY BAG 1 BAG IV ONE
[2022-09-19] MEDS ORDERED: ASPIRIN 325 MG TAB PO ONE (07:00)
[2022-09-19] MEDS ORDERED: ATORVASTATIN 80 MG TAB PO ONE (07:00)
[2022-09-19] MEDS ORDERED: SODIUM CHLORIDE 0.9% 1,000 ML IV ONE ×3 (07:11→11:30)
[2022-09-19 07:28] LABS: Glucose,Whole Blood 100 mg/dL (70-110)
[2022-09-19 07:35] LABS: Basophils # (A) 0.1 k/uL (0-0.2); Basophils % (A) 1 %; Eosinophils # (A) 0.8 k/uL (0-0.7); Eosinophils % (A) 9 %; HCT 46.8 % (39.0-53.0); Lymphocytes # (A) 1.9 k/uL (1.0-4.8); Lymphocytes % (A) 21 %; MCH 29.5 pg (25.0-35.0); MCHC 34.2 g/dL (31.0-37.0); MCV 86.2 fL (80.0-100.0); Mean Platelet Volume 9.1; Monocytes # (A) 0.7 k/uL (0-1.0); Monocytes % (A) 8 %; Neutrophils # (A) 5.4 k/uL (1.3-7.7); Neutrophils % (A) 60 %; Platelet Count 168 k/uL (150-450); RBC 5.43 m/uL (4.30-5.90); RDW 13.5 % (11.5-15.5)
[2022-09-19 07:50] LABS: Calcium 9.2 mg/dL (8.4-10.2); Potassium 3.7 mmol/L (3.5-5.1)
[2022-09-19] MEDS ORDERED: fentaNYL (PF) 50 MCG/ML 2 ML AMP ONE (08:14)
[2022-09-19] MEDS ORDERED: BENZOCAINE SPRAY 1 CAN MUCOUS MEM ONE (08:26)
[2022-09-19] MEDS ORDERED: VERAPAMIL 2.5 MG/ML 2 ML AMP ONE (08:27)
[2022-09-19] MEDS ORDERED: MIDAZOLAM 2 MG/2 ML VIAL IV ONE (08:28)
[2022-09-19] MEDS ORDERED: fentaNYL (PF) 50 MCG/ML 2 ML AMP IV ONE (08:28)
[2022-09-19] MEDS: MIDAZOLAM 2 MG/2 ML VIAL IV ONE ×2 (08:34→09:25)
[2022-09-19] MEDS ORDERED: LIDOCAINE 1% INJ 10MG/ML (5 ML VIAL-PF) SQ ONE ×2 (09:20→09:21)
[2022-09-19] MEDS ORDERED: VERAPAMIL SYRINGE (5 MG/10 ML) INTRAARTER ONE (09:22)
[2022-09-19] MEDS ORDERED: HEPARIN SODIUM 1,000 UN/ML (10ML VL) ONE (09:40)
[2022-09-19] MEDS: HEPARIN SODIUM 1,000 UN/ML (10ML VL) IV ONE ×3 (09:48→10:27)
[2022-09-19] MEDS ORDERED: CLOPIDOGREL 75 MG TAB ONE (10:01)
[2022-09-19] MEDS ORDERED: CLOPIDOGREL 75 MG TAB PO ONE (10:05)
[2022-09-19] MEDS ORDERED: IOPAMIDOL-370 125ML BTL INJ ONE (10:23)
[2022-09-19 10:25] LABS: O2 Sat Blood Gas 79.6 %
[2022-09-19 10:26] LABS: O2 Sat Blood Gas 80.8 %
[2022-09-19 10:28] LABS: O2 Sat Blood Gas 98.9 %
[2022-09-19] MEDS ORDERED: ATROPINE SULFATE 0.1 MG/ML 10ML SYRINGE IV PRN (10:36)
[2022-09-19] MEDS ORDERED: ZOLPIDEM 5 MG TAB PO PRN (10:36)
[2022-09-19] MEDS ORDERED: NITROGLYCERIN SL TABS 0.4 MG TAB SUBLINGUAL PRN (10:36)
[2022-09-19] MEDS ORDERED: MAG HYDROX/AL HYDROX/SIMETH 30 ML CUP PO PRN (10:36)
[2022-09-19] MEDS ORDERED: RX INFO: IV CONTRAST WAS GIVEN 1 EACH MISC MISCELLANE PRN (10:36)
--- NOTE | 2022-09-19 10:41 | P.PCN ---
Date of Procedure: 09/19/22 Description of Procedure: Indication: Evaluation of aortic valve Procedure Description: After explaining the procedure to the patient, it's risk and complications, blood pressure, heart rate and O2 saturation were monitored. The throat was sprayed with Cetacaine. Patient received 3 mg intravenous Versed, 50 mcg intravenous fentanyl. The probe was introduced into the esophagus without difficulty. Images were obtained. Following that, the probe was removed. There was no immediate complication. Findings: Left atrial size is normal, left atrial appendage is normal. Left ventricular size and function are normal. The mitral valve revealed mitral annulus calcification. The aortic valve is a tricuspid valve with reduced opening, calcified, by planimetry the aortic valve area is 1 cm. The tricuspid valve is normal. Descending thoracic aorta revealed mild atherosclerotic changes. No pericardial effusion was noted. Contrast bubble study revealed no shunting across the intra-atrial septum. Doppler: Pulse wave and color Doppler were obtained, in revealed mild mitral, tricuspid and aortic regurgitation. The peak gradient across the aortic valve was 69 mmHg with a mean of 39 mmHg. There was no shunting across the intra-atrial septum. Conclusion: 1. Normal left ventricle size and systolic function 2. Mild mitral and tricuspid regurgitation 3. And severe aortic stenosis with mild aortic regurgitation 4. No shunting across the intra-atrial septum 5. No pericardial effusion Sedation time: 15 minutes
[2022-09-19] MEDS ORDERED: SODIUM CHLORIDE 0.9% 1,000 ML in EMPTY BAG 1 BAG IV SCH (10:45)
--- NOTE | 2022-09-19 10:52 | P.CARDCATH ---
Date of Procedure: 09/19/22 Description of Procedure: Cardiac Catheterization: The patient is a 67-year-old male with a known history of CAD, hypertension, hyperlipidemia and aortic stenosis who has been complaining of progressive dyspnea on exertion and had progression of his gradient across the aortic valve. Recommendations were made regarding cardiac catheterization, the risks and the complications were discussed with the patient who is in full understanding and agreement. Procedure Description: Patient was brought to laborer cement gun placing in fasting semi-sedated state after receiving Fentanyl and Benadryl achieiving moderate conscious sedated state. Using Xylocaine Anesthesia and Seldinger technique, a 6-[place] sheath was introduced in the right radial artery . The venous catheter in the right basilic vein was exchanged to a 6-[place] sheath using the guidewire exchange technique. Right heart catheterization was performed using [place]-Ghulam catheter, multiple pressure and samples were obtained. Cardiac output by thermodilution was calculated. Subsequently, selective coronary angiography was performed using a 5-Central African 3.5 bend Luz catheter. Multiple views of the coronary artery including hemiaxial views were obtained. The right Luz catheter was used to cross the aortic valve and LVEDP was calculated. After removing the catheters a 6-Central African 0.75 AL guiding catheter was introduced and the right coronary ostium was cannulated. A 3.5X18 mm Xience Emily point was advanced and deployed at 16 denaa, after removing the balloon a 4.0 x 12 mm Xience Emily point stent was deployed proximal to the first one and dilated at 14 deana, subsequently a 4.0 X 12 mm NC Treck balloon was advanced into inflation at 12 deana were done. Following that, catheter and sheath were removed. Hemostasis was obtained with deployment of TR band . There was no immediate complication. Patient was returned to room in stable condition. Of note, the patient received a total of 8500 units of intravenous heparin as well as intra-arterial verapamil. He received an oral loading dose of clopidogrel. He had no chest discomfort or EKG changes. His ACT was monitored. Findings: Calcification was noted involving his coronary arteries and the mitral and aortic valve Left main: This is a large size vessel, bifurcating into LAD and left circumflex , the left main has no high-grade stenosis LAD: This is a large size vessel, reaching to the apex, giving rise to a large diagonal branch. The stented segment in the mid LAD and proximal is patent with 10-20% in-stent restenosis, the rest of the vessel has no high-grade stenosis Left circumflex: This is a nondominant vessel, giving rise to 2 obtuse marginal branch that had no evidence of high-grade stenosis RCA: This is a large dominant vessel, bifurcating into PDA and PLV, the mid RCA has a 70% to 80% eccentric stenosis. The stented segment proximally is patent Left Ventriculogram: Not performed Hemodynamics: Right atrial saturation 80%, pulmonary artery 81%, arterial 99%. Cardiac output by Prosper 8.8 L/m and by thermal 5.4 L/m, pulmonary artery systolic 25, diastolic 5 with a mean of 14 mmHg, pulmonary capillary wedge pressure A wave of 12 V wave of 8 with a mean of 6 mmHg, right ventricular systolic pressure of 22 with an end-diastolic of 2:30, right atrium A wave of 8 V wave of 6 with a mean of 4 mmHg, left ventricular systolic pressure of 1 66 mmHg is an ascending aorta of 10 6 mmHg, peak gradient 60 mmHg, LVEDP was 14-18 mmHg, aortic valve area ranging between 0.7 and 1.1 cm Conclusion: 1. Calcified coronary arteries 2. Calcified aortic and mitral valve 3. Significant stenosis in the mid RCA 4. Mild disease in the stented segment of the LAD 5. Severe aortic stenosis 6. Successful stenting of the mid RCA with reduction of stenosis from 80% to 0% Recommendations: The patient will continue an aspirin and Plavix for 6 months without any interruption in addition to aggressive coronary risks modifications. He will be evaluated for aortic valve replacement. The findings and the recommendations were discussed with the patient and the family and they were in full understanding and agreement. Duration of sedation is 75 minutes.
[2022-09-19] MEDS: SODIUM CHLORIDE 0.9% 1,000 ML in EMPTY BAG 1 BAG IV SCH ×3 (16:57→21:44)
[2022-09-19] MEDS ORDERED: amLODIPine 10 MG TAB PO SCH (21:00)
[2022-09-19] MEDS ORDERED: ATORVASTATIN 80 MG TAB PO SCH (21:00)
[2022-09-19] MEDS: hydrALAZINE HCL 25 MG TAB PO SCH (21:42)
[2022-09-19 22:29] LABS: Glucose,Whole Blood 103 mg/dL (70-110)
[2022-09-20 01:04] VITALS: RESP 18
[2022-09-20] MEDS: SODIUM CHLORIDE 0.9% 1,000 ML in EMPTY BAG 1 BAG IV SCH (05:31)
[2022-09-20 08:07] VITALS: BP 132/85; PULSE 60; TEMP 98.3
[2022-09-20] MEDS: hydrALAZINE HCL 25 MG TAB PO SCH (08:33)
[2022-09-20] MEDS ORDERED: LOSARTAN 50 MG TAB PO SCH (09:00)
[2022-09-20] MEDS ORDERED: CLOPIDOGREL 75 MG TAB PO SCH (09:00)
[2022-09-20] MEDS ORDERED: ASPIRIN 81 MG PO SCH (09:00)
--- NOTE | 2022-09-20 11:18 | P.PN ---
Subjective Progress Note Date: 09/20/22 PROGRESS NOTE The patient is a 67-year-old male with a known history of CAD, aortic stenosis who presented with worsening dyspnea, was found to have significant stenosis in the mid RCA and underwent stenting of that vessel. He was also found to have severe aortic stenosis. He is feeling better this morning. His breathing is stable. He denies any chest discomfort, dizziness or palpitations. He is in sinus mechanism. Medications: Aspirin once a day, Lipitor 80 mg daily, losartan 100 mg daily, amlodipine 10 mg a day, hydralazine 25 mg twice a day, Plavix 75 mg daily, Glucophage 500 mg twice a PHYSICAL EXAMINATION: Blood pressure 132/80 heart rate 60 LUNGS: Clear to auscultation HEART: Regular rate and rhythm, S1, S2. No S3. systolic ejection murmur 09/05 ABDOMEN: Soft, nontender, no organomegaly EXTREMETIES: No edema, right radial pulse intact LAB: Pending IMPRESSION: 1. Status post stenting of the RCA 2. Severe aortic stenosis 3. Hypertension 4. Hyperlipidemia PLAN: 1. The patient will be discharged home today in follow-up in one week 2. We will proceed for evaluation for TAVR 3. Continue present medication 4. Depending on his progress further recommendations will be made Objective - Vital Signs Vital signs: Vital Signs Temp 98.3 F 09/20/22 07:00 Pulse 60 09/20/22 07:00 Resp 18 09/20/22 07:00 BP 132/85 09/20/22 07:00 Pulse Ox 97 09/20/22 07:00 FiO2 Intake & Output 09/19/22 09/20/22 09/20/22 18:59 06:59 18:59 Intake Total 2320 Output Total 2700 Balance -380 Weight 118.6 kg Intake: IV 1600 Oral 720 Output: Urine 2700 Other: # Voids 1 1 - Labs CBC & Chem 7: 09/19/22 07:18 09/19/22 07:18
== END 2022-09-20 09:35 | disposition home or self-care (01) ==
LOC: CATHCVL 06:47 → 6NMEDSUR 10:23 → CATHCVL 09-20 09:35
PROVIDERS: ATTEND Internal Medicine Interventional Cardiology
DX: I08.3 Combined rheumatic disorders of mitral, aortic and tricuspid valves (principal); I25.10 Atherosclerotic heart disease of native coronary artery without angina pectoris; Z95.5 Presence of coronary angioplasty implant and graft; I10 Essential (primary) hypertension; E78.2 Mixed hyperlipidemia; E11.9 Type 2 diabetes mellitus without complications; Z79.82 Long term (current) use of aspirin; Z79.899 Other long term (current) drug therapy; Z79.84 Long term (current) use of oral hypoglycemic drugs; Z82.49 Family history of ischemic heart disease and other diseases of the circulatory system; Z87.891 Personal history of nicotine dependence; F10.20 Alcohol dependence, uncomplicated
CPT/HCPCS: 93312; 93320; 93325; 93460; 80048; 85018; 82810; 85025; C9600; C1769 ×4; C1887; C1894; C1751; C1874 ×2; C1725; J2250; J2001; J3010; J1644; Q9967

== ENCOUNTER 2022-10-06 06:44 | Outpatient (CLI) | payer MEDICARE, OTHER ==
[2022-10-06 07:32] LABS: Basophils # (A) 0.1 k/uL (0-0.2); Basophils % (A) 1 %; Eosinophils # (A) 0.7 k/uL (0-0.7); Eosinophils % (A) 9 %; HCT 44.7 % (39.0-53.0); Lymphocytes # (A) 1.7 k/uL (1.0-4.8); Lymphocytes % (A) 21 %; MCH 29.5 pg (25.0-35.0); MCHC 33.6 g/dL (31.0-37.0); MCV 87.7 fL (80.0-100.0); Mean Platelet Volume 8.8; Monocytes # (A) 0.7 k/uL (0-1.0); Monocytes % (A) 9 %; Neutrophils # (A) 4.7 k/uL (1.3-7.7); Neutrophils % (A) 58 %; Platelet Count 169 k/uL (150-450); RDW 13.9 % (11.5-15.5); WBC 8.1 k/uL (3.8-10.6)
[2022-10-06 07:39] LABS: Partial Thromboplastin Time 24.7 sec (22.0-30.0); Prothrombin Time 10.3 sec (9.0-12.0)
[2022-10-06 08:25] LABS: ALT 24 U/L (4-49); Albumin 4.3 g/dL (3.5-5.0); Alkaline Phosphatase 129 U/L (38-126); Magnesium 2.3 mg/dL (1.6-2.3)
[2022-10-06 09:57] LABS: Appearance,Urine Clear (Clear); Bilirubin,Urine Negative (Negative); Blood,Urine Negative (Negative); Color,Urine Colorless; Glucose,Urine (UA) Negative (Negative); Ketones,Urine Negative (Negative); Leukocyte Esterase,Urine Negative (Negative); Nitrite,Urine Negative (Negative); PH, Urine 5.5 (5.0-8.0); Protein,Urine Negative (Negative); Specific Gravity,Urine 1.004 (1.001-1.035); Urobilinogen,Urine <2.0 mg/dL (<2.0)
--- NOTE | 2022-10-06 11:30 | US ---
EXAMINATION TYPE: US carotid duplex BILAT DATE OF EXAM: 10/06/2022 COMPARISON: NONE CLINICAL HISTORY: tavr WORK UP. PreOP TECHNIQUE: Carotid duplex ultrasound examination. Indirect Doppler criteria was utilized. FINDINGS: EXAM MEASUREMENTS: RIGHT: Peak Systolic Velocity (PSV) cm/sec ----- Right CCA: 36.3 ----- Right ICA: 56.0 ----- Right ECA: 69.8 ICA/CCA ratio: 1.5 RIGHT: End Diastole cm/sec ----- Right CCA: 7.4 ----- Right ICA: 20.2 ----- Right ECA: 9.2 LEFT: Peak Systolic Velocity (PSV) cm/sec ----- Left CCA: 50.0 ----- Left ICA: 48.2 ----- Left ECA: 92.9 ICA/CCA ratio: 1.0 LEFT: End Diastole cm/sec ----- Left CCA: 15.6 ----- Left ICA: 20.8 ----- Left ECA: 15.2 VERTEBRALS (direction of flow): Right Vertebral: Antegrade Left Vertebral: Antegrade Rhythm: Normal HOSPICE CASE MANAGER NOTES: No elevated velocities or significant stenosis. Mild atherosclerotic plaque. IMPRESSION: No evidence of significant hemodynamic stenosis. Criteria for Assigning % of Stenosis / Diameter reduction (Estimation based on the indirect measurements of the internal carotid artery velocities (ICA PSV). 1. Normal (no stenosis)=ICA PSV < 125 cm/s: ratio < 2.0: ICA EDV<40 cm/s. 2. Less than 50% stenosis=ICA PSV < 125 cm/s: ratio < 2.0: ICA EDV<40 cm/s. 3. 50 to 69% stenosis=ICA PSV of 125 to 230 cm/s: ration 2.0 ? 4.0: ICA EDV 40-100 cm/s. 4. Greater than 70% stenosis to near occlusion= ICA PSV > 230 cm/s: ratio > 4.0: ICA EDV > 100 cm/s. 5. Near occlusion= ICA PSV velocities may be low or undetectable: variable ratio and ICA EDV. 6. Total occlusion=unable to detect flow.
--- NOTE | 2022-10-06 12:33 | CT ---
EXAMINATION TYPE: CT TAVR Planning DATE OF EXAM: 10/06/2022 HISTORY: Pre surgical planning. CT DLP: 3071.9 mGycm Automated Exposure Control for Dose Reduction was Utilized. CONTRAST: CT scan of the chest, abdomen and pelvis is performed with IV Contrast, patient injected with 125ml m L of Isovue 370. COMPARISON: none TECHNIQUE: Helical imaging obtained through the chest, abdomen and pelvis during arterial phase nick ghada administration of radiographic contrast intravenously. FINDINGS: See report from [facility] regarding preprocedural planning CHEST: Lower Neck and Thyroid: No significant findings Lungs: No significant findings Central Airway: No significant findings Pleura: No significant findings Pulmonary Arteries: No significant findings Heart and Pericardium: No significant findings Lymph Nodes: No significant findings Mediastinum & Esophagus: Acending thoracic aortic aneurysm 4.2 cm ABDOMEN/PELVIS: Please note arterial phase of the imaging limits detailed evaluation of the solid abdominal organs. Liver: No significant findings Spleen: No significant findings Kidneys: No significant findings Adrenal Glands: No significant findings Pancreas: No significant findings Gallbladder: No significant findings Bowel and Mesentery: No significant findings Lymph Nodes: No significant findings Urinary Bladder: No significant findings Pelvic Organs: No significant findings Other: No significant findings Other Lines/Tubes/Devices/Hardware: None IMPRESSION: As above
[2022-10-06 13:03] LABS: AST 27 U/L (17-59); African American GFR (CKD) 41 (>60 ml/min/1.73 sqM); Albumin/Globulin Ratio 1.3; Anion Gap 11 mmol/L; Blood Urea Nitrogen 29 mg/dL (9-20); Calcium 9.4 mg/dL (8.4-10.2); Carbon Dioxide 25 mmol/L (22-30); Chloride 103 mmol/L (98-107); Globulin 3.2 g/dL; Glucose 87 mg/dL (74-99); Non-African American GFR(CKD) 35 (>60 ml/min/1.73 sqM); Sodium 139 mmol/L (137-145); Total Bilirubin 0.6 mg/dL (0.2-1.3); Total Protein 7.5 g/dL (6.3-8.2)
[2022-10-06 22:38] LABS: Chol/HDL Ratio 3.88 Ratio; LDL Cholesterol,Calculated 13.7 mg/dL (0.0-131.0)
[2022-10-06 22:45] LABS: Hepatitis A Antibody IgM Nonreactive (Nonreactive)
[2022-10-06 22:46] LABS: Hepatitis B Core IgM Nonreactive (Nonreactive); Hepatitis B Surface Antigen Nonreactive (Nonreactive); Hepatitis C IgG Antibody Nonreactive (Nonreactive)
== END 2022-10-06 14:40 | disposition home or self-care (01) ==
LOC: LABWHC1 06:44
PROVIDERS: ATTEND Thoracic Surgery (Cardiothoracic Vascular Surgery)
DX: Z01.818 Encounter for other preprocedural examination (principal); I35.1 Nonrheumatic aortic (valve) insufficiency; E87.8 Other disorders of electrolyte and fluid balance, not elsewhere classified; I35.0 Nonrheumatic aortic (valve) stenosis; E11.9 Type 2 diabetes mellitus without complications; N28.9 Disorder of kidney and ureter, unspecified; E78.5 Hyperlipidemia, unspecified; E07.9 Disorder of thyroid, unspecified; Z79.899 Other long term (current) drug therapy; Z79.01 Long term (current) use of anticoagulants; R58 Hemorrhage, not elsewhere classified; R35.0 Frequency of micturition
CPT/HCPCS: 94150; 83880; 80061; 80053; 80074; 84443; 83735; 85025; 85610; 85730; 81003; 87086; 83036; 93880; 71275; 74174; 36415; Q9967

== ENCOUNTER → 2022-11-15 | Outpatient (CLI) | payer MEDICARE, OTHER | END | disposition home or self-care (01) | LOC: LABWHC1 10:18 | PROVIDERS: ATTEND Thoracic Surgery (Cardiothoracic Vascular Surgery) | DX: Z01.812 Encounter for preprocedural laboratory examination (principal); I35.0 Nonrheumatic aortic (valve) stenosis; I35.1 Nonrheumatic aortic (valve) insufficiency; Z79.899 Other long term (current) drug therapy | CPT/HCPCS: 36415; 80053; 85025; 85610; 85730; 86850; 86900; 86901 ==

== ENCOUNTER → 2023-01-17 | Outpatient (CLI) | payer MEDICARE, OTHER ==
[2023-01-17 08:50] LABS: INR 0.9 (<1.2); Partial Thromboplastin Time 24.4 sec (22.0-30.0)
[2023-01-17 15:26] LABS: ALT 34 U/L (10-49); AST 28 U/L (14-35); Albumin 4.6 d/dL (3.8-4.9); Albumin/Globulin Ratio 1.59 Ratio (1.60-3.17); Alkaline Phosphatase 107 U/L (41-126); BUN/Creat Ratio 16.11 Ratio (12.00-20.00); Calcium 9.9 mg/dL (8.7-10.3); Carbon Dioxide 28.2 mmol/L (21.6-31.8); Chloride 98 mmol/L (96-109); Globulin 2.9 d/dL (1.6-3.3); Glucose 80 mg/dL (70-110); Potassium 3.9 mmol/L (3.5-5.5); Sodium 140 mmol/L (135-145); Total Bilirubin 0.5 mg/dL (0.3-1.2); Total Protein 7.5 d/dL (6.2-8.2)
[2023-01-17 16:18] LABS: Basophils # (A) 0.05 X 10*3/uL (0.00-0.10); Basophils % (A) 0.7 %; Eosinophils # (A) 0.47 X 10*3/uL (0.04-0.35); Eosinophils % (A) 6.2 %; HCT 49.4 % (39.6-50.0); HGB 15.3 d/dL (12.0-15.0); Lymphocytes # (A) 1.93 X 10*3/uL (0.90-5.00); Lymphocytes % (A) 25.3 %; MCH 28.5 pg (27.0-32.0); Mean Platelet Volume 11.6 FL (9.5-12.2); Monocytes # (A) 0.69 X 10*3/uL (0.20-1.00); NRBC Per 100 WBC 0 X 10*3/uL (0.00-0.01); Neutrophils # (A) 4.48 X 10*3/uL (1.80-7.70); Neutrophils % (A) 58.5 %; Platelet Count 193 X 10*3/uL (140-440); RBC 5.37 X 10*6/uL (4.40-5.60); RDW 15.6 % (11.5-14.5); WBC 7.64 X 10*3/uL (4.50-10.00)
== END | disposition home or self-care (01) ==
LOC: LABPAT 07:49
PROVIDERS: ATTEND Thoracic Surgery (Cardiothoracic Vascular Surgery)
DX: Z01.812 Encounter for preprocedural laboratory examination (principal); I35.0 Nonrheumatic aortic (valve) stenosis; Z79.899 Other long term (current) drug therapy; Z79.01 Long term (current) use of anticoagulants
CPT/HCPCS: 36415; 80053; 85025; 85610; 85730

== ENCOUNTER 2023-01-25 05:54 | Inpatient (IN) | payer MEDICARE, OTHER ==
[2023-01-25] MEDS ORDERED: NITROGLYCERIN-D5W PMX 25 MG/250 ML BTL IV PRN (06:00)
[2023-01-25] MEDS ORDERED: CLEVIDIPINE BUTYRATE 25 MG in EMPTY BAG 1 BAG IV PRN (06:00)
[2023-01-25] MEDS ORDERED: ELECTROLYTE-A SOLUTION 1,000 ML with POTASSIUM CHLORIDE 100 MEQ, MAGNESIUM SULFATE 16 M... IV PRN ×5 (06:00)
[2023-01-25] MEDS ORDERED: METOPROLOL TARTRATE 25 MG TAB PO ONE (06:00)
[2023-01-25] MEDS ORDERED: SODIUM CHLORIDE 0.9% 500 ML 500 ML INTRAARTER PRN (06:00)
[2023-01-25] MEDS ORDERED: INSULIN REGULAR 100 UNIT in SODIUM CHLORIDE 0.9% 100 ML IV PRN (06:00)
[2023-01-25] MEDS ORDERED: LACTATED RINGERS 1,000 ML IV SCH (06:00)
[2023-01-25] MEDS ORDERED: ATORVASTATIN 10 MG TAB PO ONE (06:00)
[2023-01-25] MEDS ORDERED: TRANEXAMIC ACID 2,000 MG in SODIUM CHLORIDE 0.9% 80 ML IV PRN (06:00)
[2023-01-25] MEDS ORDERED: ceFAZolin 3 GM in SODIUM CHLORIDE 0.9% 100 ML IVPB ONE (06:00)
[2023-01-25] MEDS ORDERED: CLOPIDOGREL 75 MG TAB PO ONE (06:00)
[2023-01-25] MEDS ORDERED: ASPIRIN 325 MG TAB PO ONE (06:00)
[2023-01-25] MEDS ORDERED: PROTAMINE SULFATE 250 MG in EMPTY BAG 1 BAG IV PRN (06:00)
[2023-01-25 06:25] LABS: Glucose,Whole Blood 106 mg/dL (70-110)
[2023-01-25] MEDS ORDERED: SODIUM CHLORIDE 0.9% 1,000 ML IV ONE ×2 (06:29→07:19)
[2023-01-25] MEDS ORDERED: LIDOCAINE 2% INJ 20 MG/ML (2 ML VIAL) ONE (07:46)
[2023-01-25] MEDS ORDERED: fentaNYL (PF) 50 MCG/ML 50 ML VIAL ONE (07:46)
[2023-01-25] MEDS ORDERED: SODIUM CHLORIDE 0.9% (PF) 10 ML VIAL ONE (07:46)
[2023-01-25] MEDS ORDERED: PROTAMINE SULFATE 10 MG/ML 5 ML VIAL IV ONE (07:46)
[2023-01-25] MEDS ORDERED: PHENYLEPHRINE-0.9% NACL SYG 1,000 MCG/10 ML SYRINGE ONE (07:46)
[2023-01-25] MEDS ORDERED: ePHEDrine 50 MG/ML 1 ML VIAL ONE (07:46)
[2023-01-25] MEDS ORDERED: PROPOFOL 10 MG/ML 20 ML VIAL IV ONE (07:46)
[2023-01-25] MEDS ORDERED: ROCURONIUM 10 MG/ML (5 ML VIAL) IV ONE (07:46)
[2023-01-25] MEDS ORDERED: GLYCOPYRROLATE 0.2 MG/ML 2 ML VIAL ONE (07:46)
[2023-01-25] MEDS ORDERED: SUCCINYLCHOLINE CHLORIDE 200 MG/10 ML VIAL IV ONE (07:46)
[2023-01-25] MEDS ORDERED: MIDAZOLAM 2 MG/2 ML VIAL ONE (07:46)
[2023-01-25] MEDS ORDERED: NEOSTIGMINE 1 MG/ML 10 ML VIAL ONE (07:46)
[2023-01-25] MEDS ORDERED: HEPARIN SODIUM,PORCINE 10,000 UNIT/ML 1 ML VIAL ONE (07:46)
[2023-01-25] MEDS ORDERED: IOPAMIDOL-370 100ML BTL INJ ONE ×2 (09:11)
[2023-01-25] MEDS ORDERED: DEXTROSE 50% SYRINGE 50 ML IVP PRN ×2 (09:33)
[2023-01-25] MEDS ORDERED: IPRATROPIUM-ALBUTEROL 3 ML NEB INHALATION PRN (09:33)
[2023-01-25] MEDS ORDERED: ONDANSETRON 4 MG/2 ML VIAL IVP PRN (09:33)
--- NOTE | 2023-01-25 09:47 | P.ANPRN ---
Procedure Note - Anesthesia - CARI Intraop Pre Bypass CARI Intraop - Anesthesia Indication: Transcatheter aortic valve replacement procedure Date of Procedure: 01/25/23 Pre-operative Diagnosis: Severe aortic stenosis Post-operative Diagnosis: Severe aortic stenosis status post transcatheter aortic valve replacement Surgeon: Zev Lowe Ejection Fraction: Normal Regional Wall Motion Abnormalities: None Left Ventricle Hypertrophy: Yes R. Ventricle Function: Normal Aortic Valve: Aortic valve severely calcified. There is a severe stenosis noted. Peak gradient across the valve is 64 mm of mercury and mean gradient is 42 mm of mercury. Trace AI seen Anatomy: Trileaflet Aortic Stenosis: Severe Aortic Regurgitation: None Mitral Stenosis: None Mitral Regurgitation: None Tricuspid Stenosis: None Pulmonic Stenosis: None Pulmonic Regurgitation: None R. Atrial Dilation: No R. Atrial PFO: No L. Atrial Dilation: No Aortic Dissection: No - CARI Intraop Post Bypass CARI Intraop Post Bypass Procedure Performed: Transcatheter aortic valve replacement procedure Ejection Fraction: Normal Regional Wall Motion Abnormalities: None R. Ventricle Function: Normal Aortic Valve: Prosthetic aortic valve in situ. Appears to be well seated. Trace paravalvular leak which is not significant noted. Peak gradient across the valve is 12 mm Hg and mean gradient is 8 mmHg. Mitral Valve: Unchanged Tricuspid: Unchanged Pulmonic: Unchanged Aortic Dissection: No
[2023-01-25 09:52] LABS: Glucose,Whole Blood 118 mg/dL (70-110)
--- NOTE | 2023-01-25 10:08 | P.OP ---
Date of Procedure: 01/25/23 Preoperative Diagnosis: Calcific aortic stenosis Postoperative Diagnosis: Same Procedure(s) Performed: Percutaneous transfemoral transcatheter aortic valve replacement with 29 mm Haines Ananya 2 prosthesis Implants: 29 mm Haines Ananya 2 TAVR Anesthesia: GETA Surgeon: Zev Lowe (CV surgeon) Modeling Instructor #1: Elver Myers (1st Campaign Consultant) Modeling Instructor #2: Mikal Renee (2nd Campaign Consultant) Estimated Blood Loss (ml): 25 IV fluids (ml): 1,000 Pathology: none sent Condition: stable Disposition: ICU Indications for Procedure: 67-year-old male with progressive calcific tricuspid aortic stenosis presents with worsening dyspnea and shortness of breath. He has chronic renal insufficiency, morbid obesity, pulmonary dysfunction and was felt to be a better candidate for transcatheter valve replacement than SAVR after evaluation in the high risk valve clinic by multi-disciplinary team. Operative Findings: Mean gradient across the aortic valve was 40 mmHg. Valve implant proceeded well valve was implanted at 2079. Patient was found immediately to be in complete heart block with a slow ventricular escape rhythm after valve appointment. His escape rhythm the next couple of minutes but he remained in complete heart block. Completion angiography demonstrated no evidence of leak and excellent flow through the femoral arterial system. Description of Procedure: Patient was brought to the cardiac catheterization laboratory and placed supine on the table. Gen. anesthesia was induced and the patient was intubated. The anterior torso and bilateral groins were sterilely prepped and draped. Bilateral femoral access was obtained under ultrasound guidance. The Par[place] sheaths were placed in the femoral arteries on the right and left and a 8-Paraguayan sheath was placed in the right femoral vein. Femoral arterial line on the right was exchanged for a long femoral sheath which was advanced into the descending thoracic aorta. Through this a pigtail was advanced into the right coronary sinus of Valsalva. Was used for monitoring aortic pressures and performing root injections. Temporary pacemaker wire was advanced through the right femoral venous sheath and positioned in the apex of the right ventricle with excellent capture and thresholds. 2 Perclose devices were placed in the left femoral artery and an 8-Paraguayan sheath then placed. Patient was systemically heparinized and the 8-Paraguayan sheath was exchanged for the 14-Paraguayan the sheath over a stiff wire. Aortic valve was crossed and a pigtail catheter placed at the apex of the ventricle. Transvalvular gradients were measured. Lunderquist wire was placed at the apex of the ventricle. A 29 Haines Ananya 2 valve had been loaded on the back table and was brought up onto the field was advanced over the stiff wire through the Haines sheath into the descending thoracic aorta. The balloon was then pulled back into position within the valve and the valve was curved around the aortic arch and across the aortic valve. The pusher was pulled back and root injections were performed to guarantee perfect placement. The valve was then deployed under rapid ventricular pacing. Valve deployment proceeded uneventfully with levels of 10 and 90. On slow in the ventricular pacing it was noted that the patient was in complete heart block with slow ventricular escape rhythm which quickly increased to a heart rate in the 60s. Valve deployment system and wire were pulled back into the descending thoracic aorta and then removed through the sheath. Heparin was reversed with protamine. The sheath was removed and the femoral artery controlled with the 2 Perclose devices successfully. Completion angiography was performed. Femoral arterial sheath was removed on the right and femoral pacer was left in place although the patient was in his own escape rhythm. Patient was awakened and transferred to the ICU in stable condition.
--- NOTE | 2023-01-25 10:10 | XR ---
EXAMINATION TYPE: XR chest 1V portable DATE OF EXAM: 01/25/2023 10:05 AM COMPARISON: Chest radiographs from 02/22/2010 TECHNIQUE: XR chest 1V portable Frontal view of the chest. CLINICAL INDICATION:Male, 67 years old with history of Post Operative Cardiac Surgery; FINDINGS: Lungs/Pleura: Low lung volumes are present. There is no evidence of pleural effusion, focal consolida tion, or pneumothorax. Pulmonary vascularity: Unremarkable. Heart/mediastinum: Cardiomediastinal silhouette is enlarged and stable. Post aortic valve repair hilda nges. Musculoskeletal: No acute osseous pathology. Other findings: None Lines/Tubes: Lead extending from the inferior aspect terminates near the right ventricle. IMPRESSION: Postoperative change, no immediate competition. Low lung volumes correlate for atelectasis versus pul monary vascular congestion.
[2023-01-25 10:27] LABS: Basophils % (A) 0 %; Eosinophils # (A) 0.6 k/uL (0-0.7); Eosinophils % (A) 6 %; HCT 41.7 % (39.0-53.0); HGB 13.7 gm/dL (13.0-17.5); Lymphocytes # (A) 1.7 k/uL (1.0-4.8); Lymphocytes % (A) 18 %; MCH 29.8 pg (25.0-35.0); MCHC 32.9 g/dL (31.0-37.0); MCV 90.6 fL (80.0-100.0); Mean Platelet Volume 9.3; Monocytes # (A) 0.2 k/uL (0-1.0); Monocytes % (A) 2 %; Neutrophils # (A) 6.8 k/uL (1.3-7.7); Neutrophils % (A) 73 %; Platelet Count 128 k/uL (150-450); RDW 15.8 % (11.5-15.5); WBC 9.2 k/uL (3.8-10.6)
[2023-01-25 10:50] LABS: Prothrombin Time 10.7 sec (9.0-12.0)
[2023-01-25 10:59] LABS: ALT 23 U/L (4-49); AST 27 U/L (17-59); African American GFR (CKD) 57 (>60 ml/min/1.73 sqM); Albumin 3.3 g/dL (3.5-5.0); Alkaline Phosphatase 103 U/L (38-126); Anion Gap 8 mmol/L; Blood Urea Nitrogen 21 mg/dL (9-20); Calcium 8.3 mg/dL (8.4-10.2); Carbon Dioxide 24 mmol/L (22-30); Chloride 106 mmol/L (98-107); Glucose 105 mg/dL (74-99); Magnesium 2.2 mg/dL (1.6-2.3); Non-African American GFR(CKD) 49 (>60 ml/min/1.73 sqM); Potassium 3.7 mmol/L (3.5-5.1); Sodium 138 mmol/L (137-145); Total Bilirubin 0.6 mg/dL (0.2-1.3); Total Protein 6.1 g/dL (6.3-8.2)
[2023-01-25 11:02] LABS: Ionized Calcium 4.7 mg/dL (4.5-5.3)
[2023-01-25 11:19] LABS: Glucose,Whole Blood 114 mg/dL (70-110)
[2023-01-25] MEDS: INSULIN ASPART (NovoLOG) 100 UNIT/ML VIAL SQ SCH ×3 (13:03→20:33)
[2023-01-25 14:03] VITALS: BMI 34.7
[2023-01-25 16:04] LABS: Glucose,Whole Blood 113 mg/dL (70-110)
[2023-01-25] MEDS: LACTATED RINGERS 1,000 ML IV SCH ×2 (16:48→23:20)
--- NOTE | 2023-01-25 17:48 | P.PCN ---
Date of Procedure: 01/25/23 Operative Findings: TRANSCATHETER AORITC VALVE REPLACEMENT OPERATIVE REPORT PROCEDURE PERFORMED: 1. Percutaneous Aortic Valve Implantation using a 29 mm Haines Ananya Valve 2. Transesophageal echocardiography (performed by anesthesia) 3. Ultrasound guided access and repair of left femoral artery access site by Perclose closure device. 4. Placement of temporary pacemaker wire. 5. Aortic root angiography INDICATIONS: 1. 67 year-old with a history of severe symptomatic aortic valve stenosis. The patient was experiencing shortness of breath consistent with NYHA class II PERFORMING PHYSICIANS: 1. Mikal Renee DO Interventional Cardiology 2. Elver Myers MD Interventional Cardiology. 3. Zev Lowe MD, Cardiothoracic Surgeon. SEDATION: General anesthesia provided by anesthesia, see separate note APPROACH: Bilateral femoral artery via percutaneous approach PROCEDURE DESCRIPTION: The patient was discussed at valve clinic with multidisciplinary approach with cardiothoracic surgeon as well as pan washer and thought better treated with TAVR. Risks, benefits, and alternatives of the procedure had been explained to the patient who understood the risks and agreed to proceed. After consents were obtained, patient was brought to the transcatheter aortic valve implantation room in the cardiac carpenter/labor and general anesthesia was provided by the anesthesiologist (see separate report). Once full body sterile prep was performed, right common femoral vein was cannulated using micropuncture technique under ultrasound guidance and the micropuncture wire passed easily then we placed a 6-Belizean 23 cm sheath in the right common femoral vein. After that under fluoroscopy guidance a balloon tip temporary pacer was advanced to the right ventricle. Pacer wire was set as a 60 heart rate permanent and 2.5 amp as a backup for now. After that the right common femoral artery was cannulated using micropuncture technique under ultrasound guidance and the micropuncture wire passed easily then we placed a 6-Belizean 55 cm sheath at the right common femoral artery. Subsequently the left common femoral artery was cannulated using micropuncture technique and the micropuncture wire passed easily then we place again a 6-Belizean 11 cm sheath at the left common femoral artery. After that a 6-Belizean pigtail catheter was advanced through the sheath at the right common femoral artery all the way to the aortic root and subsequently it was positioned in the on coronary cusp. The catheter was connected into a 2 pink for contrast injection. Then we deployed 2 Perclose through the sheath at the left common femoral artery. After that an 8-Belizean sheath was placed over 035 wire. Next a 0.035 Lunderquist wire was placed in the Aorta via a pigtail catheter. At was performed from the left common femoral artery sheath. Subsequently the 8-Belizean sheath at the left common femoral artery was exchanged over the stiff wire into a 16-Belizean sheath which Haines sheath which was advanced under fluoroscopy guidance.. Next a 6F- AL1 catheter was advanced over a wire to the aortic root. A straight wire was advanced through the catheter and used to cross the severely stenotic valve. The AL1 was then exchanged for a 6Fr pigtail catheter and pressure measurements were obtained. The 0.035 Lunderquist wire was then positioned in the apex. Next a 29 mm Haines Ananya valve was advanced. The valve was then positioned across the aortic valve and confirmed with aortic root angiography. The valve was then deployed in proper position using slow deployment and with rapid pacing in conjuncture with aortic root angiography and CARI. The delivery system was withdrawn back into the arch and an aortic root injection in conjunction with CARI demonstrated a satisfactory result. There was trace para valvular leak. There was no evidence of any other significant abnormalities. The preclose Perclose was then deployed in the left femoral artery and hemostasis was achieved. . Femoral angiogram was performed that showed no contrast leak. The sheath at the right common femoral artery was left for manual hemostasis.. The temporary venous pacemaker was sutured in place. The patient was then transported to the ICU in hemodynamically stable condition, requiring no pressor support. By the end of the procedure the patient was in complete heart block but with heart rate in the 80s. RECOMMENDATIONS: ICU monitoring Monitor for the heart rate
[2023-01-25 20:22] LABS: Glucose,Whole Blood 132 mg/dL (70-110)
[2023-01-25] MEDS: hydrALAZINE HCL 25 MG TAB PO SCH (20:32)
[2023-01-25] MEDS: ATORVASTATIN 80 MG TAB PO SCH (20:32)
[2023-01-25] MEDS: amLODIPine 10 MG TAB PO SCH (20:32)
[2023-01-25] MEDS: SENNOSIDES-DOCUSATE SODIUM 1 EACH TAB PO SCH (20:32)
[2023-01-25] MEDS: HEPARIN SODIUM,PORCINE/PF 5,000 UNIT/0.5 ML SYRINGE SQ SCH (23:16)
[2023-01-26] MEDS: ACETAMINOPHEN TAB 325 MG TAB PO PRN ×2 (01:48→16:23)
[2023-01-26 05:33] LABS: Basophils % (A) 0 %; Eosinophils # (A) 0.1 k/uL (0-0.7); Eosinophils % (A) 0 %; HCT 41.8 % (39.0-53.0); HGB 13.7 gm/dL (13.0-17.5); Lymphocytes # (A) 0.9 k/uL (1.0-4.8); Lymphocytes % (A) 7 %; MCH 29.2 pg (25.0-35.0); MCHC 32.8 g/dL (31.0-37.0); Mean Platelet Volume 9.5; Monocytes # (A) 0.9 k/uL (0-1.0); Monocytes % (A) 7 %; Neutrophils # (A) 11.4 k/uL (1.3-7.7); Neutrophils % (A) 85 %; Platelet Count 128 k/uL (150-450); RBC 4.69 m/uL (4.30-5.90); RDW 15.9 % (11.5-15.5); WBC 13.5 k/uL (3.8-10.6)
[2023-01-26 06:34] LABS: ALT 22 U/L (4-49); AST 30 U/L (17-59); African American GFR (CKD) 64 (>60 ml/min/1.73 sqM); Albumin 3.3 g/dL (3.5-5.0); Alkaline Phosphatase 107 U/L (38-126); Anion Gap 9 mmol/L; Blood Urea Nitrogen 19 mg/dL (9-20); Calcium 8.5 mg/dL (8.4-10.2); Carbon Dioxide 22 mmol/L (22-30); Chloride 105 mmol/L (98-107); Glucose 127 mg/dL (74-99); Magnesium 2.1 mg/dL (1.6-2.3); Non-African American GFR(CKD) 55 (>60 ml/min/1.73 sqM); Potassium 3.7 mmol/L (3.5-5.1); Sodium 136 mmol/L (137-145); Total Bilirubin 0.5 mg/dL (0.2-1.3); Total Protein 6.3 g/dL (6.3-8.2)
[2023-01-26] MEDS ORDERED: Potassium Replacement Protocol 1 EACH MISC MISCELLANE PRN (06:44)
[2023-01-26 06:52] LABS: Glucose,Whole Blood 122 mg/dL (70-110)
[2023-01-26 06:52] LABS: Ionized Calcium 4.8 mg/dL (4.5-5.3)
[2023-01-26] MEDS: PANTOPRAZOLE 40 MG TABLET PO SCH (06:55)
[2023-01-26] MEDS: INSULIN ASPART (NovoLOG) 100 UNIT/ML VIAL SQ SCH ×4 (06:56→20:27)
[2023-01-26] MEDS ORDERED: POTASSIUM CHLORIDE ER 20 MEQ TAB.ER PO SCH (07:00)
[2023-01-26] MEDS: LACTATED RINGERS 1,000 ML IV SCH (08:02)
[2023-01-26] MEDS ORDERED: ALPRAZolam 0.25 MG TAB PO PRN (08:32)
--- NOTE | 2023-01-26 08:53 | P.PN ---
Subjective Progress Note Date: 01/26/23 Principal diagnosis: Severe symptomatic aortic valve stenosis, NYHA class II. Previous medical history of coronary artery disease status post PCI, hypertension, hyperlipidemia, diabetes mellitus, gout, lifetime nonsmoker, family history of coronary artery disease POD #1 percutaneous aortic valve implantation using a 29 mm Haines Ananya valve, transesophageal echocardiogram performed by anesthesia, ultrasound-guided access and repair of left femoral artery access site by Perclose closure device, placement of temporary pacemaker wire, aortic root angiography Complete heart block, temporary transvenous pacemaker in place, not currently pacing The patient was seen and examined this morning with Dr. Myers. Patient is lying in bed in no acute distress although does complain of back pain from lying flat. Heart rhythm on telemetry appears to be complete heart block with rate in the low 40s, right femoral transvenous sheath present with mode VVI and rate 40 bpm. Blood pressure stable, patient reports no chest pain, no shortness of breath, no dizziness. Currently on room air with oxygen saturation in the mid 90s. Chest x-ray, lab work reviewed. Follow up transthoracic echocardiogram was completed, read pending. No other new concerns. Objective - Vital Signs Vital signs: Vital Signs Temp 99.5 F 01/26/23 04:00 Pulse 48 L 01/26/23 07:00 Resp 21 01/26/23 07:00 BP 131/80 01/26/23 07:00 Pulse Ox 95 01/26/23 07:00 FiO2 4 01/25/23 12:00 Intake & Output 01/25/23 01/26/23 01/26/23 18:59 06:59 18:59 Intake Total 3351 866 33 Output Total 780 1500 0 Balance 9211 -634 33 Weight 119.2 kg 123.7 kg Intake: IV 2151 516 33 Lactated Ringers 1,000 ml 140 20 @ 100 mls/hr IV .Q10H WING Rx#:[id number] NS 900 290 10 ceFAZolin 2 gm In Sodium 50 Chloride 0.9% 50 ml @ 100 mls/hr IVPB Q8HR WING Rx# :[id number] pressure bags 51 36 3 Intake, IV Titration 50 Amount ceFAZolin 2 gm In Sodium 50 Chloride 0.9% 50 ml @ 100 mls/hr IVPB Q8HR WING Rx# :[id number] Oral 1150 350 Output: Urine 780 1500 0 Other: Voiding Method Urinal External Catheter ABP, PAP, CO, CI - Last Documented Arterial Blood Pressure 137/56 - Exam CONSTITUTIONAL: Appears somewhat comfortable, cooperative, no acute distress RESPIRATORY: Lungs sounds diminished bilaterally. Respirations even, nonlabored. Currently on room air with oxygen saturation 94% CARDIOVASCULAR: S1, S2 present. Slow but regular rate and rhythm, complete heart block on telemetry. Palpable peripheral pulses bilaterally. No edema present GASTROINTESTINAL: Abdomen soft, nontender, nondistended. Active bowel sounds present 4 quadrants. Tolerating diet GENITOURINARY: External catheter present, patient voiding clear, yellow urine. Output 2280 mL in the last 24 hours INTEGUMENTARY: Skin is warm and dry. Bilateral groins soft, nontender NEUROLOGIC: Cranial nerves II through XII intact MUSKULOSKELETAL: Able to move all extremities, strength equal bilaterally PSYCHIATRIC: Alert and oriented to person place and time, appropriate affect, intact judgment and insight INVASIVE LINES AND TUBES: Ventricular transvenous pacemaker wire present, connected to generator, VVI mode with backup rate 40 bpm. Right femoral arterial line present - Allied health notes Allied health notes reviewed: nursing - Labs CBC & Chem 7: 01/26/23 04:58 01/26/23 04:58 Labs: Abnormal Lab Results - Last 24 Hours (Table) 01/25/23 01/25/23 01/25/23 Range/Units 09:51 09:58 09:58 WBC (3.8-10.6) k/uL RDW 15.8 H (11.5-15.5) % Plt Count 128 L (150-450) k/uL Neutrophils # (1.3-7.7) k/uL Lymphocytes # (1.0-4.8) k/uL Sodium (137-145) mmol/L BUN 21 H (9-20) mg/dL Creatinine 1.46 H (0.66-1.25) mg/dL Glucose 105 H (74-99) mg/dL POC Glucose (mg/dL) 118 H (70-110) mg/dL Calcium 8.3 L (8.4-10.2) mg/dL Total Protein 6.1 L (6.3-8.2) g/dL Albumin 3.3 L (3.5-5.0) g/dL 01/25/23 01/25/23 01/25/23 Range/Units 11:18 16:03 20:21 WBC (3.8-10.6) k/uL RDW (11.5-15.5) % Plt Count (150-450) k/uL Neutrophils # (1.3-7.7) k/uL Lymphocytes # (1.0-4.8) k/uL Sodium (137-145) mmol/L BUN (9-20) mg/dL Creatinine (0.66-1.25) mg/dL Glucose (74-99) mg/dL POC Glucose (mg/dL) 114 H 113 H 132 H (70-110) mg/dL Calcium (8.4-10.2) mg/dL Total Protein (6.3-8.2) g/dL Albumin (3.5-5.0) g/dL 01/26/23 01/26/23 01/26/23 Range/Units 04:58 04:58 06:51 WBC 13.5 H (3.8-10.6) k/uL RDW 15.9 H (11.5-15.5) % Plt Count 128 L (150-450) k/uL Neutrophils # 11.4 H (1.3-7.7) k/uL Lymphocytes # 0.9 L (1.0-4.8) k/uL Sodium 136 L (137-145) mmol/L BUN (9-20) mg/dL Creatinine 1.34 H (0.66-1.25) mg/dL Glucose 127 H (74-99) mg/dL POC Glucose (mg/dL) 122 H (70-110) mg/dL Calcium (8.4-10.2) mg/dL Total Protein (6.3-8.2) g/dL Albumin 3.3 L (3.5-5.0) g/dL - Imaging and Cardiology Chest x-ray: image reviewed Assessment and Plan Assessment: Severe symptomatic aortic valve stenosis, NYHA class II, status post Repair with 29 mm Haines Ananya valve Complete heart block with transvenous pacemaker wire present, not currently pacing History of coronary artery disease status post PCI Hypertension Hyperlipidemia Diabetes mellitus Gout Lifetime nonsmoker Family history of coronary artery disease Plan: Will monitor for another 24 hours for return of intrinsic rhythm Temporary transvenous pacemaker to remain connected Nothing by mouth after midnight for possible permanent pacemaker tomorrow if intrinsic rhythm does not return Continue to maximize medical therapy with aspirin, statin, Plavix, Norvasc, hydralazine, Cozaar Patient to remain on bedrest, may lie on his right side as long as he keeps his right leg straight Pain controlled current medication regimen, morphine added for better pain control GI/DVT prophylaxis More recommendations to follow
[2023-01-26] MEDS ORDERED: bisacodyL 10 MG SUPP RECTAL PRN (09:00)
[2023-01-26] MEDS ORDERED: MAGNESIUM HYDROXIDE 2,400 MG/30 ML CUP PO PRN (09:00)
[2023-01-26] MEDS ORDERED: METOPROLOL TARTRATE 12.5 MG TAB PO SCH (09:00)
[2023-01-26] MEDS: MORPHINE SULFATE 2 MG/ML SYRINGE IVP PRN ×2 (09:03→16:14)
[2023-01-26] MEDS: ASPIRIN 81 MG PO SCH (09:04)
[2023-01-26] MEDS: hydrALAZINE HCL 25 MG TAB PO SCH ×2 (09:04→23:23)
[2023-01-26] MEDS: CLOPIDOGREL 75 MG TAB PO SCH (09:04)
[2023-01-26] MEDS: LOSARTAN 50 MG TAB PO SCH (09:04)
[2023-01-26] MEDS: hydroCHLOROthiazide 25 MG TAB PO SCH (09:04)
[2023-01-26] MEDS: allopurinoL 300 MG TAB PO SCH (09:04)
[2023-01-26] MEDS: HEPARIN SODIUM,PORCINE/PF 5,000 UNIT/0.5 ML SYRINGE SQ SCH ×2 (09:05→16:14)
--- NOTE | 2023-01-26 09:55 | XR ---
EXAMINATION TYPE: XR chest 1V portable DATE OF EXAM: 01/26/2023 6:20 AM COMPARISON: Chest radiographs from 01/25/2023 TECHNIQUE: XR chest 1V portable Frontal view of the chest. CLINICAL INDICATION:Male, 67 years old with history of Post Operative Cardiac Surgery; FINDINGS: Lungs/Pleura: There is no evidence of pleural effusion, focal consolidation, or pneumothorax. Pulmonary vascularity: Unremarkable. Heart/mediastinum: Cardiomediastinal silhouette is unremarkable. Musculoskeletal: No acute osseous pathology. IMPRESSION: Low lung volumes with a generalized hazy appearance which could represent atelectasis versus pulmonar y edema correlate with serum BNP.
[2023-01-26 11:11] LABS: Glucose,Whole Blood 119 mg/dL (70-110)
--- NOTE | 2023-01-26 11:49 | CA ---
Transthoracic Echo Report Name: Mor Stevenson Age: 67 Gender: M : 1955 Exam Date: 01/26/2023 07:31 Exam Location: [facility] Ht (in): 73 Wt (lb): 262 Ordering Physician: Liza Burdick Attending/Referring Phys: [id number], [employer] Daron Winston Procedure CPT: Indications: post TAVR Cardiac Hx: Technical Quality: Fair Contrast 1: Total Dose (mL): Contrast 2: Total Dose (mL): MEASUREMENTS (Male / Female) Normal Values 2D ECHO LV Diastolic Diameter PLAX 5.8 cm 4.2 - 5.9 / 3.9 - 5.3 cm LV Systolic Diameter PLAX 3.2 cm IVS Diastolic Thickness 1.3 cm 0.6 - 1.0 / 0.6 - 0.9 cm LVPW Diastolic Thickness 1.5 cm 0.6 - 1.0 / 0.6 - 0.9 cm LV Relative Wall Thickness 0.5 RV Internal Dim ED PLAX 3.0 cm LVOT Diameter 2.4 cm Aortic Root Diameter 2.8 cm LA Systolic Diameter LX 2.8 cm 3.0 - 4.0 / 2.7 - 3.8 cm LV Diastolic Volume MOD BP 84.7 cm??? 67 - 155 / 56 - 104 cm??? LV Systolic Volume MOD BP 26.1 cm??? - / 19 - 49 cm??? LV Ejection Fraction MOD BP 69.2 % >= 55 % LV Cardiac Index MOD BP 2051.6 cm???/min???m??? LV Diastolic Volume MOD 4C 88.3 cm??? LV Systolic Volume MOD 4C 23.4 cm??? LV Ejection Fraction MOD 4C 73.5 % LV Cardiac Index MOD 4C 2272.1 cm???/min???m??? LV Diastolic Length 4C 7.8 cm LV Systolic Length 4C 7.3 cm LV Diastolic Volume MOD 2C 79.7 cm??? LV Systolic Volume MOD 2C 25.2 cm??? LV Ejection Fraction MOD 2C 68.4 % LV Cardiac Index MOD 2C 1908.1 cm???/min???m??? LV Diastolic Length 2C 8.0 cm LV Systolic Length 2C 6.2 cm LA Volume 45.6 cm??? 18 - 58 / 22 - 52 cm??? Ascending Aorta Diameter 3.0 cm DOPPLER AV Peak Velocity 329.7 cm/s AV Peak Gradient 43.5 mmHg LVOT Peak Velocity 164.1 cm/s LVOT Peak Gradient 10.8 mmHg AV Area Cont Eq pk 2.2 cm??? MV Peak Velocity 149.1 cm/s MV Peak Gradient 8.9 mmHg MV Mean Velocity 76.1 cm/s MV Mean Gradient 3.0 mmHg MV Velocity Time Integral 58.3 cm Mitral E Point Velocity 126.7 cm/s Mitral A Point Velocity 154.0 cm/s Mitral E to A Ratio 0.8 MV Deceleration Time 353.6 ms MV E' Velocity 9.1 cm/s Mitral E to MV E' Ratio 13.9 TR Peak Velocity 142.2 cm/s TR Peak Gradient 8.1 mmHg PV Peak Velocity 123.2 cm/s PV Peak Gradient 6.1 mmHg FINDINGS Left Ventricle Mild LV dilitation. Moderately increased septal wall thickness. Left ventricular ejection fraction is estimated at 55-60 %. Right Ventricle Normal right ventricular size. Right Atrium Normal right atrial size. Left Atrium Normal left atrial size. Mitral Valve Structurally normal mitral valve. Aortic Valve Post TAVR. No regurgitation noted Tricuspid Valve Tricuspid valve not well visualized. Pulmonic Valve Pulmonic valve not well visualized. Pericardium Normal pericardium. Aorta Grossly normal. CONCLUSIONS 1. Normal left ventricle size and systolic function 2. Bioprosthetic aortic valve with normal appearance and no evidence of regurgitation Previewed by: Dr. Hannah Grande MD (Electronically Signed) Final Date: 26 January 2023 11:47
--- NOTE | 2023-01-26 14:03 | PN ---
PROGRESS NOTE SUBJECTIVE: This gentleman underwent a TAVR yesterday. He has a history of CAD and prior PCI. He also has asymptomatic sinus bradycardia, but he has developed complete heart block. He has a backup ventricular pacemaker at 40 beats per minute. His resting ventricular rate is in the mid to high 40s, but he is in complete heart block. Occasionally, he has a second-degree heart block. He does not wish to have a pacemaker. We will give another 24 hours and observe and see how he does. We will do an EKG tomorrow. OBJECTIVE: HEART: S1 and S2 heard normally. Short systolic murmur at the base. LUNGS: Reveal decent air entry. ABDOMEN: Soft. EXTREMITIES: Both groins look clean and dry. Rest of physical exam, unchanged. We will continue to follow and get a 12-lead EKG tomorrow. MARCO ANTONIO / JOSUEN: [id number] /
[2023-01-26 16:21] LABS: Glucose,Whole Blood 108 mg/dL (70-110)
[2023-01-26 20:20] LABS: Glucose,Whole Blood 111 mg/dL (70-110)
[2023-01-26] MEDS: SENNOSIDES-DOCUSATE SODIUM 1 EACH TAB PO SCH (20:28)
[2023-01-26] MEDS: ATORVASTATIN 80 MG TAB PO SCH (20:28)
[2023-01-26] MEDS: amLODIPine 10 MG TAB PO SCH (23:23)
[2023-01-27] MEDS: HEPARIN SODIUM,PORCINE/PF 5,000 UNIT/0.5 ML SYRINGE SQ SCH ×3 (00:31→16:22)
[2023-01-27 05:29] LABS: African American GFR (CKD) 66 (>60 ml/min/1.73 sqM); Anion Gap 8 mmol/L; Blood Urea Nitrogen 19 mg/dL (9-20); Calcium 8.7 mg/dL (8.4-10.2); Carbon Dioxide 24 mmol/L (22-30); Chloride 103 mmol/L (98-107); Glucose 106 mg/dL (74-99); Non-African American GFR(CKD) 57 (>60 ml/min/1.73 sqM); Sodium 135 mmol/L (137-145)
[2023-01-27 05:31] LABS: HCT 42.4 % (39.0-53.0); MCH 29.3 pg (25.0-35.0); MCHC 32.9 g/dL (31.0-37.0); MCV 88.9 fL (80.0-100.0); Mean Platelet Volume 9.4; Platelet Count 103 k/uL (150-450); RBC 4.77 m/uL (4.30-5.90); RDW 15.7 % (11.5-15.5)
[2023-01-27] MEDS ORDERED: ceFAZolin 3 GM in SODIUM CHLORIDE 0.9% 100 ML IVPB PRN (06:00)
[2023-01-27 06:42] LABS: Glucose,Whole Blood 86 mg/dL (70-110)
[2023-01-27] MEDS ORDERED: ceFAZolin 1 GM in SODIUM CHLORIDE 0.9% IRRIG BTL 250 ML IRRIGATION PRN (07:00)
[2023-01-27] MEDS: INSULIN ASPART (NovoLOG) 100 UNIT/ML VIAL SQ SCH ×4 (07:43→20:27)
--- NOTE | 2023-01-27 08:21 | XR ---
EXAMINATION TYPE: XR chest 1V portable DATE OF EXAM: 01/27/2023 HISTORY: Shortness of breath. COMPARISON: 01/26/2023 TECHNIQUE: Single view of the chest is submitted. FINDINGS: Demonstrated are scattered senescent parenchymal change. Pulmonary venous congestion without overt failure. Increased density right medial lung base may refle ct atelectasis or infiltrate. The heart is stable. Hilar and mediastinal structures are within normal limits. Degenerative changes are seen of the dorsal spine. IMPRESSION: 1. Increased density right medial lung base may reflect atelectasis or infiltrate.
--- NOTE | 2023-01-27 09:15 | P.PN ---
Subjective Progress Note Date: 01/27/23 Principal diagnosis: Severe symptomatic aortic valve stenosis, NYHA class II. Previous medical history of coronary artery disease status post PCI, hypertension, hyperlipidemia, diabetes mellitus, gout, lifetime nonsmoker, family history of coronary artery disease POD #2 percutaneous aortic valve implantation using a 29 mm Haines Ananya valve, transesophageal echocardiogram performed by anesthesia, ultrasound-guided access and repair of left femoral artery access site by Perclose closure device, placement of temporary pacemaker wire, aortic root angiography Complete heart block, temporary transvenous pacemaker in place, not currently pacing The patient was seen and examined this morning with Dr. Myers. Patient is lying in bed in no acute distress, states pain is better with additional medications. Heart rhythm on telemetry appears to be complete heart block with rate in the 40s, right femoral transvenous sheath present with mode VVI and rate 40 bpm. Blood pressure stable, patient reports no chest pain, no shortness of breath, no dizziness. Currently on room air with oxygen saturation in the mid 90s. Chest x-ray, lab work reviewed. Patient will need PPM, hopefully today. No other new concerns. Objective - Vital Signs Vital signs: Vital Signs Temp 97.6 F 01/27/23 04:00 Pulse 48 L 01/27/23 07:00 Resp 14 01/27/23 07:00 BP 134/86 01/27/23 07:00 Pulse Ox 92 L 01/27/23 07:00 FiO2 4 01/25/23 12:00 Intake & Output 01/26/23 01/27/23 01/27/23 18:59 06:59 18:59 Intake Total 1043 120 10 Output Total 600 1300 Balance 443 -1180 10 Weight 121.6 kg Intake: IV 193 120 10 Lactated Ringers 1,000 ml 20 @ 100 mls/hr IV .Q10H [facility] Rx#:[id number] NS 120 120 10 ceFAZolin 2 gm In Sodium 50 Chloride 0.9% 50 ml @ 100 mls/hr IVPB Q8HR [facility] Rx# :[id number] pressure bags 3 Oral 850 Output: Urine 600 1300 Other: Voiding Method External Catheter External Catheter # Voids 0 0 ABP, PAP, CO, CI - Last Documented Arterial Blood Pressure 144/60 - Exam CONSTITUTIONAL: Appears somewhat comfortable, cooperative, no acute distress RESPIRATORY: Lungs sounds diminished bilaterally. Respirations even, nonlabored. Currently on room air with oxygen saturation 94% CARDIOVASCULAR: S1, S2 present. Slow but regular rate and rhythm, complete heart block on telemetry. Palpable peripheral pulses bilaterally. No edema present GASTROINTESTINAL: Abdomen soft, nontender, nondistended. Active bowel sounds present 4 quadrants. Currently NPO GENITOURINARY: External catheter present, patient voiding clear, yellow urine. Output 1900 mL in the last 24 hours INTEGUMENTARY: Skin is warm and dry. Bilateral groins soft, nontender NEUROLOGIC: Cranial nerves II through XII intact MUSKULOSKELETAL: Able to move all extremities, strength equal bilaterally PSYCHIATRIC: Alert and oriented to person place and time, appropriate affect, intact judgment and insight INVASIVE LINES AND TUBES: Ventricular transvenous pacemaker wire present, connected to generator, VVI mode with backup rate 40 bpm - Allied health notes Allied health notes reviewed: nursing - Labs CBC & Chem 7: 01/27/23 04:50 01/27/23 04:50 Labs: Abnormal Lab Results - Last 24 Hours (Table) 01/26/23 01/26/23 01/27/23 Range/Units 11:10 20:19 04:50 WBC 13.0 H (3.8-10.6) k/uL RDW 15.7 H (11.5-15.5) % Plt Count 103 L (150-450) k/uL Sodium (137-145) mmol/L Creatinine (0.66-1.25) mg/dL Glucose (74-99) mg/dL POC Glucose (mg/dL) 119 H 111 H (70-110) mg/dL 01/27/23 Range/Units 04:50 WBC (3.8-10.6) k/uL RDW (11.5-15.5) % Plt Count (150-450) k/uL Sodium 135 L (137-145) mmol/L Creatinine 1.30 H (0.66-1.25) mg/dL Glucose 106 H (74-99) mg/dL POC Glucose (mg/dL) (70-110) mg/dL - Imaging and Cardiology Chest x-ray: image reviewed Assessment and Plan Assessment: Severe symptomatic aortic valve stenosis, NYHA class II, status post Repair with 29 mm Haines Ananya valve Complete heart block with transvenous pacemaker wire present, not currently pacing History of coronary artery disease status post PCI Hypertension Hyperlipidemia Diabetes mellitus Gout Lifetime nonsmoker Family history of coronary artery disease Plan: Will need PPM, hopefully today, currently NPO Temporary transvenous pacemaker to remain connected Continue to maximize medical therapy with aspirin, statin, Plavix, Norvasc, hydralazine, Cozaar Patient to remain on bedrest, may lie on his right side as long as he keeps his right leg straight Pain controlled current medication regimen, morphine added for better pain control GI/DVT prophylaxis More recommendations to follow
[2023-01-27] MEDS: CLOPIDOGREL 75 MG TAB PO SCH (09:46)
[2023-01-27] MEDS: hydroCHLOROthiazide 25 MG TAB PO SCH (09:47)
[2023-01-27] MEDS: PANTOPRAZOLE 40 MG TABLET PO SCH (09:47)
[2023-01-27] MEDS: ASPIRIN 81 MG PO SCH (09:47)
[2023-01-27] MEDS: allopurinoL 300 MG TAB PO SCH (09:47)
[2023-01-27] MEDS: LOSARTAN 50 MG TAB PO SCH (09:47)
[2023-01-27] MEDS: hydrALAZINE HCL 25 MG TAB PO SCH ×2 (09:47→20:43)
[2023-01-27] MEDS: SODIUM CHLORIDE 0.9% 1,000 ML IV SCH (09:53)
[2023-01-27] MEDS ORDERED: SODIUM CHLORIDE 0.9% 1,000 ML IV SCH ×2 (12:00)
[2023-01-27 12:02] LABS: Glucose,Whole Blood 109 mg/dL (70-110)
[2023-01-27] MEDS ORDERED: IV FLUID CONTINUATION 1,000 ML IV ONE (13:58)
[2023-01-27] MEDS ORDERED: IOPAMIDOL-370 100ML BTL INJ ONE (14:00)
[2023-01-27] MEDS ORDERED: fentaNYL (PF) 50 MCG/ML 2 ML AMP ONE (14:06)
[2023-01-27] MEDS ORDERED: LIDOCAINE 1% INJ 10MG/ML (20 ML MDV) SQ ONE ×2 (14:09→14:15)
[2023-01-27] MEDS ORDERED: fentaNYL (PF) 50 MCG/ML 2 ML AMP IVP ONE (14:10)
[2023-01-27] MEDS ORDERED: MIDAZOLAM 2 MG/2 ML VIAL IVP ONE (14:10)
--- NOTE | 2023-01-27 14:45 | PN ---
PROGRESS NOTE SUBJECTIVE: Mr. Stevenson remains in a complete heart block. He underwent a TAVR on Monday, and he did not wish to have a pacemaker yesterday and also late last night, but finally has decided and is agreeable for a pacemaker. I explained to him in detail rationale, risks, benefits, and options. Risks of pneumothorax, cardiac puncture, infection, and injury were explained. The patient understands all details and wishes to proceed with the procedure, which we will try and do today. OBJECTIVE: VITAL SIGNS: Stable. The heart rate is about 48, complete heart block. HEART: S1 and S2 heard normally. Short systolic murmur at the base. LUNGS: Reveal bilateral decent air entry. ABDOMEN: Soft. EXTREMITIES: Lower extremities reveal diminished pulses. CENTRAL NERVOUS SYSTEM: Grossly within normal limits. MMODL / IJN: [id number] /
[2023-01-27 16:19] LABS: Glucose,Whole Blood 120 mg/dL (70-110)
--- NOTE | 2023-01-27 18:41 | XR ---
EXAMINATION TYPE: XR chest 1V portable DATE OF EXAM: 01/27/2023 6:19 PM COMPARISON: Chest radiographs from 01/19/2023 TECHNIQUE: XR chest 1V portable Frontal view of the chest. CLINICAL INDICATION:Male, 67 years old with history of Lead placement check; FINDINGS: Lungs/Pleura: There is flattening of the diaphragm with increased lucency of the lungs. No evidence o f pneumothorax, pleural effusion or focal consolidation. Pulmonary vascularity: Unremarkable. Heart/mediastinum: Cardiomediastinal silhouette is unremarkable. Post aortic valve repair changes. T wo lead cardiac conduction device overlying the left hemithorax with lead tips projecting over the ri ght ventricle and right atrium. Musculoskeletal: No acute osseous pathology. IMPRESSION: 1. interval cardiac conduction device placed with leads in proper position. No pneumothorax. 2. COPD changes.
[2023-01-27 20:19] LABS: Glucose,Whole Blood 118 mg/dL (70-110)
[2023-01-27] MEDS: ATORVASTATIN 80 MG TAB PO SCH (20:43)
[2023-01-27] MEDS: SENNOSIDES-DOCUSATE SODIUM 1 EACH TAB PO SCH (20:43)
[2023-01-27] MEDS: amLODIPine 10 MG TAB PO SCH (20:43)
--- NOTE | 2023-01-27 21:13 | CE ---
CARDIAC ELECTROPHYSIOLOGY REPORT DUAL-CHAMBER PERMANENT PACEMAKER REPORT. DATE OF PROCEDURE: 01/27/2023. PROCEDURE PERFORMED: Permanent dual-chamber pacemaker from left infraclavicular approach. PERFORMED BY: Dr. Manny Herring. ANESTHESIA: Moderate conscious sedation time was 73 minutes. The patient was administered Versed and fentanyl. Oxygen saturation, hemodynamics, and EKG were monitored closely. CLINICAL INFORMATION: Mr. Mor Stevenson is a 67-year-old gentleman with a history of hypertension, CAD, and hyperlipidemia, who underwent percutaneous aortic valve replacement for severe aortic stenosis that was performed on the of this month, about 2 days ago. Following the procedure, he developed a complete heart block. Prior to that, he had a right bundle, first-degree AV block with a resting sinus rhythm in the range of 48 to 55 beats per minute. Following the TAVR procedure, he went into a complete heart block and had a temporary pacemaker as a backup at a rate of 40. However, ventricular rate was between 45 to 50, and he was observed for 48 hours, but given his complete heart block, he was advised a dual-chamber pacemaker. The patient was seen by Dr. Grande and Dr. Myers as well. I explained to him the rationale, risks, benefits, and options. He understood all details and wished to proceed with the procedure. PROCEDURE NOTE: Under local anesthesia and strict aseptic precautions, using a micropuncture needle technique, access was obtained into the left axillary vein under fluoroscopic guidance. A linear incision was made of about 2-1/2 inches medial and parallel to the left deltopectoral groove. Blunt dissection with cautery was performed until a subfacial level. A pacemaker pocket was then performed. Excellent hemostasis was secured. A second access was then obtained with the same micropuncture needle technique medial to the previous access under fluoroscopic guidance. Over the guidewire, a 6-Iranian introducer was placed. Through the introducer, a ventricular lead was advanced and positioned at the right ventricular apex. Good thresholds and sensitivities were obtained. Pacemaker lead was checked in SWISS and NEVES projection for visualization, and also, 10 V pacing was performed. The lead was then secured to the underlying muscle. Subsequently, over the other guidewire, a 6-Iranian introducer was advanced and positioned. Through this introducer, another lead which was an atrial 52 cm lead was advanced and positioned into the right atrial appendage. Good sensitivities and thresholds were obtained. The threshold was about 1.75, but the sensitivities were very good. The lead was then secured to the underlying muscle with 0 silk suture. Subsequently, the entire pocket was irrigated. . All parameters were excellent. Good hemostasis was was irrigated with antibiotic solution. The leads were then attached to the pulse generator. The pulse generator was also secured in the line of the suture to the underlying muscle. The wound was closed in 2 layers. At the beginning of the procedure, intravenous antibiotic was administered after the incision was made. The patient tolerated the procedure well . The patient was then sent to the room in a stable condition. Details were discussed with the patient as well as his 2 sisters. PACEMAKER INFORMATION: Drinking Water Technician: [employer], model Assurity MRI 2272, serial #[id number]. Atrial lead tank calibrator: [employer], model Tendril STS 2088TC/52, serial #[id number]. Ventricular lead: [employer], model Tendril STS 2088TC/58, serial #[id number]. Atrial lead threshold was 1.75 V at 0.4 milliseconds. P waves were 3.6 , and the lead impedance was 450 ohms. Ventricular lead threshold was 0.5 V at 0.4 milliseconds, R waves were 6.4 mV. The lead impedance was 660 ohms. The pacemaker was set at a low rate of 55, high rate of 110. AV pace delay of 350 and AV sense delay of 325 milliseconds. The patient tolerated the procedure well. Moderate conscious sedation time was 73 minutes. MMODL / IJN: [id number] /
[2023-01-28] MEDS: HEPARIN SODIUM,PORCINE/PF 5,000 UNIT/0.5 ML SYRINGE SQ SCH ×2 (00:57→08:45)
[2023-01-28 01:00] VITALS: RESP 16
[2023-01-28 06:16] LABS: Glucose,Whole Blood 113 mg/dL (70-110)
[2023-01-28] MEDS: INSULIN ASPART (NovoLOG) 100 UNIT/ML VIAL SQ SCH (06:47)
[2023-01-28] MEDS: SODIUM CHLORIDE 0.9% 1,000 ML IV SCH (06:47)
[2023-01-28] MEDS: PANTOPRAZOLE 40 MG TABLET PO SCH (06:52)
--- NOTE | 2023-01-28 07:07 | XR ---
EXAMINATION TYPE: XR chest 1V portable DATE OF EXAM: 01/28/2023 6:14 AM COMPARISON: Chest radiographs from 01/27/2023 TECHNIQUE: XR chest 1V portable Portable AP radiograph of the chest. CLINICAL INDICATION:Male, 67 years old with history of post TAVR/PPM placement; FINDINGS: Lungs/Pleura: There is no evidence of pleural effusion, focal consolidation, or pneumothorax. Basila r subsegmental atelectasis. Pulmonary vascularity: Unremarkable. Heart/mediastinum: Cardiomediastinal silhouette is unremarkable. Postoperative changes are present i n the mediastinum. Atherosclerotic calcification of the aorta. Two lead cardiac conduction device ove rlying the left hemithorax with lead tips projecting over the right ventricle and right atrium. Musculoskeletal: No acute osseous pathology. IMPRESSION: Postsurgical changes with bibasilar atelectasis. No significant change from prior examination.
--- NOTE | 2023-01-28 08:22 | P.PN ---
Subjective Progress Note Date: 01/28/23 Principal diagnosis: Severe symptomatic aortic valve stenosis, NYHA class II. Previous medical history of coronary artery disease status post PCI, hypertension, hyperlipidemia, diabetes mellitus, gout, lifetime nonsmoker, family history of coronary artery disease POD #3 percutaneous aortic valve implantation using a 29 mm Haines Ananya valve, transesophageal echocardiogram performed by anesthesia, ultrasound-guided access and repair of left femoral artery access site by Perclose closure device, placement of temporary pacemaker wire, aortic root angiography Complete heart block POD #1 [employer] permanent dual-chamber pacemaker left infraclavicular approach The patient was seen and examined this morning sitting up in bed on the cardiac stepdown unit in no acute distress. He had permanent pacemaker placed yesterday by Dr. Herring. Currently 100% paced, hemodynamically stable. Remains on room air and able to achieve 2250 on incentive spirometry. Patient states pain is much better controlled as he has been able to be out of bed and ambulatory without difficulty. Anticipates discharge to home today. Objective - Vital Signs Vital signs: Vital Signs Temp 98.1 F 01/28/23 04:00 Pulse 80 01/28/23 04:00 Resp 16 01/28/23 04:00 BP 114/62 01/28/23 04:00 Pulse Ox 94 L 01/28/23 04:00 FiO2 4 01/25/23 12:00 Intake & Output 01/27/23 01/28/23 01/28/23 18:59 06:59 18:59 Intake Total 960 Output Total 1300 1250 Balance -340 -1250 Intake: IV 110 NS 60 Intake, IV Titration 300 Amount Sodium Chloride 0.9% 1, 300 000 ml @ 50 mls/hr IV . Q20H [facility] Rx#:[id number] Oral 550 Output: Urine 1300 1250 Other: Voiding Method External Catheter Urinal # Voids 0 ABP, PAP, CO, CI - Last Documented Arterial Blood Pressure 144/60 - Exam CONSTITUTIONAL: Appears comfortable, cooperative, no acute distress RESPIRATORY: Lungs sounds diminished bilaterally. Respirations even, nonlabored. Currently on room air with oxygen saturation 94%. Able to achieve 2250 milliliters on incentive spirometry CARDIOVASCULAR: S1, S2 present. Regular rate and rhythm, V paced on telemetry. Palpable peripheral pulses bilaterally. No edema present GASTROINTESTINAL: Abdomen soft, nontender, nondistended. Active bowel sounds present 4 quadrants. Tolerating diet GENITOURINARY: Continues to void clear, yellow urine. Output 2250 mL in the last 24 hours INTEGUMENTARY: Skin is warm and dry. Bilateral groins soft, nontender. Left anterior chest wall pacemaker site with intact dressing NEUROLOGIC: Cranial nerves II through XII intact MUSKULOSKELETAL: Able to move all extremities, strength equal bilaterally. Reminder sling to left arm PSYCHIATRIC: Alert and oriented to person place and time, appropriate affect, intact judgment and insight - Allied health notes Allied health notes reviewed: nursing - Labs CBC & Chem 7: 01/27/23 04:50 01/27/23 04:50 Labs: Abnormal Lab Results - Last 24 Hours (Table) 01/27/23 01/27/23 01/28/23 Range/Units 16:18 20:18 06:15 POC Glucose (mg/dL) 120 H 118 H 113 H (70-110) mg/dL - Imaging and Cardiology Chest x-ray: report reviewed, image reviewed Assessment and Plan Assessment: Severe symptomatic aortic valve stenosis, NYHA class II, status post Repair with 29 mm Haines Ananya valve Complete heart block, status post placement of [employer] permanent pacemaker History of coronary artery disease status post PCI Hypertension Hyperlipidemia Diabetes mellitus Gout Lifetime nonsmoker Family history of coronary artery disease Plan: Pacemaker interrogation today Continue to maximize medical therapy with aspirin, statin, Plavix, Norvasc, hydralazine, Cozaar Increase activity as tolerated Pain control with current medication regimen GI/DVT prophylaxis Will discharge to home today, appointments in place for 30 days and one year post TAVR follow-up as well as follow-up appointment for patient to have a groin check and device check
[2023-01-28] MEDS: ASPIRIN 81 MG PO SCH (08:44)
[2023-01-28] MEDS: allopurinoL 300 MG TAB PO SCH (08:44)
[2023-01-28] MEDS: CLOPIDOGREL 75 MG TAB PO SCH (08:44)
[2023-01-28] MEDS: LOSARTAN 50 MG TAB PO SCH (08:44)
[2023-01-28] MEDS: hydroCHLOROthiazide 25 MG TAB PO SCH (08:44)
[2023-01-28] MEDS: hydrALAZINE HCL 25 MG TAB PO SCH (08:45)
[2023-01-28 08:52] VITALS: BP 123/78; PULSE 82; TEMP 97.5
[2023-01-28 09:04] LABS: African American GFR (CKD) 59 (>60 ml/min/1.73 sqM); Anion Gap 11 mmol/L; Blood Urea Nitrogen 21 mg/dL (9-20); Calcium 8.5 mg/dL (8.4-10.2); Carbon Dioxide 21 mmol/L (22-30); Chloride 104 mmol/L (98-107); Glucose 120 mg/dL (74-99); Non-African American GFR(CKD) 51 (>60 ml/min/1.73 sqM); Potassium 3.8 mmol/L (3.5-5.1); Sodium 136 mmol/L (137-145)
[2023-01-28 09:11] LABS: MCH 29.8 pg (25.0-35.0); MCHC 33.2 g/dL (31.0-37.0); MCV 89.6 fL (80.0-100.0); Mean Platelet Volume 9.8; RBC 4.69 m/uL (4.30-5.90); RDW 15.7 % (11.5-15.5); WBC 11.9 k/uL (3.8-10.6)
[2023-01-28 11:43] LABS: Platelet Count 92 k/uL (150-450)
--- NOTE | 2023-01-28 11:47 | P.DS ---
Providers Date of admission: 01/25/23 05:54 Expected date of discharge: 01/28/23 Attending physician: Elver Myers Consults: 01/25/23 06:00 Consult to Anesthesia Routine Consulting Provider: Anesthesia,Services Consult Reason/Comments: Cardiac Surgery Pre-Op 01/25/23 09:33 Consult Physician Routine Consulting Provider: Zev Lowe Consult Reason/Comments: post TAVR Do you want consulting provider notified?: Already Contacted Primary care physician: [place] Hospital Course: MEDICAL HISTORY: 1. Calcified aortic valve with severe symptomatic aortic valve stenosis, NYHA class II 2. Complete heart block post procedure, unexpected 3. History of coronary artery disease status post PCI 4. Hypertension 5. Hyperlipidemia 6. Diabetes mellitus 7. Gout 8. Lifetime nonsmoker 9. Family history of coronary artery disease PROCEDURE: 1. Percutaneous aortic valve implantation using a 29 mm Haines Ananya valve under CARI and fluoroscopy guidance 2. Transesophageal echocardiography performed by anesthesia 3. Ultrasound-guided access and repair of left femoral artery access site by Perclose closure device 4. Placement of temporary pacemaker wire 5. Aortic root angiography 6. Placement of [employer] permanent dual-chamber pacemaker via left infraclavicular approach HISTORY OF PRESENT ILLNESS: This is a 67-year-old gentleman who follows on an outpatient basis with Dr. Ruano for primary care and for cardiology. He has a known history of severe aortic stenosis and has been symptomatic with increased exertional dyspnea as well as lower extremity edema. He had been referred to structural heart clinic for evaluation for transcatheter aortic valve replacement after heart catheterization and transesophageal echoca rdiogram were completed. Echocardiography demonstrated normal systolic function with EF 55-60%, aortic valve area 0.83 cm with a peak/mean gradient 76/48 mmHg. Heart catheterization showed patent proximal RCA and mid LAD stent with placement of drug-eluting stent to the mid RCA in August 2022. After workup was completed STS risk score was calculated along with incremental risk and the patient was felt to be better served with transcatheter aortic valve replacement which was the recommendation. The usual course of TAVR was discussed in detail the patient, risks and benefits were reviewed, shared decision making between cardiology, surgery, and the patient/family took place, and the patient consented to proceed with the procedure. He was scheduled at the earliest possible date after obtaining dental clearance, however he did have a flareup of his gout and was scheduled for TAVR after recovery from his flareup and clearance from his primary care physician. HOSPITAL COURSE: The patient was brought to the hospital on 01/25/23, was taken to the extended stay area, prepared in the usual fashion, and subsequently taken to the cardiac catheterization laboratory where Dr. Myers and Dr. Lowe completed TAVR procedure under general anesthesia with fluoroscopy and CARI. The valve was deployed under rapid ventricular pacing and proceeded without event. At the end of the procedure there was mean gradient 8 mmHg, hemodynamics were felt to be acceptable except patient had developed a complete heart block and temporary pacer wire was left in place, and there was no evidence of significant perivalvular leak. Upon completion of the procedure the patient was extubated and was transferred to the cardiovascular intensive care unit where he was recovered and monitored hemodynamically. He continued to have complete heart block and a permanent pacemaker was placed on POD #2. Device check the following morning was acceptable. His oxygen was titrated down, he was tolerating oral diet, his pain was controlled, follow-up TTE demonstrated normal left ventricular systolic function, normally functioning bioprosthetic aortic valve without evidence of regurgitation and he was ready to be discharged to home on postoperative day #3. He received written and verbal instruction regarding his medications, activity restrictions, signs and symptoms requiring physician notification, and follow-up appointments. Patient Condition at Discharge: Stable Plan - Discharge Summary Discharge Rx Participant: No New Discharge Prescriptions: New Sennosides-Docusate Sodium [Senokot-S] 2 each PO HS PRN tab PRN Reason: Constipation Acetaminophen Tab [Tylenol] 650 mg PO Q4HR PRN tab PRN Reason: Fever And/ Or Mild Pain (1-3) Continue metFORMIN HCL [Glucophage] 500 mg PO BID Losartan Potassium [Cozaar] 100 mg PO DAILY hydroCHLOROthiazide 25 mg PO DAILY amLODIPine [Norvasc] 10 mg PO HS Atorvastatin [Lipitor] 80 mg PO HS hydrALAZINE HCL [Apresoline] 25 mg PO BID Aspirin 81 mg PO DAILY Clopidogrel [Plavix] 75 mg PO DAILY #90 tab allopurinoL [Zyloprim] 300 mg PO DAILY Discharge Medication List metFORMIN HCL [Glucophage] 500 mg PO BID 04/20/18 [History] Losartan Potassium [Cozaar] 100 mg PO DAILY 11/19/19 [History] hydroCHLOROthiazide 25 mg PO DAILY 11/19/19 [History] Atorvastatin [Lipitor] 80 mg PO HS 06/22/20 [History] amLODIPine [Norvasc] 10 mg PO HS 06/22/20 [History] Aspirin 81 mg PO DAILY 09/14/22 [History] hydrALAZINE HCL [Apresoline] 25 mg PO BID 09/14/22 [History] Clopidogrel [Plavix] 75 mg PO DAILY #90 tab 09/20/22 [Rx] allopurinoL [Zyloprim] 300 mg PO DAILY 01/13/23 [History] Acetaminophen Tab [Tylenol] 650 mg PO Q4HR PRN tab 01/28/23 [Rx] Sennosides-Docusate Sodium [Senokot-S] 2 each PO HS PRN tab 01/28/23 [Rx] Follow up Appointment(s)/Referral(s): Hannah Grande MD [STAFF PHYSICIAN] - 02/08/23 10:00 am (Your appointment 02/08/2023 is for a groin check with SUMANTH Keith. You will also have a 30 day post TAVR echo and appointment with Dr. Grande 04/10/2023 at 8:15 AM, as well as a 1 year post TAVR echo and appointment with Dr. Grande 12/27/2023 at 9:45 AM) Antolin Ruano DO [Primary Care Provider] - As Needed Clinic,Structural Heart [NON-STAFF] - 04/10/23 9:30 am (Please come to the valve clinic 04/10/2023 at approximately 9:30 AM after to your appointment with Dr. Myers for 30 day follow-up, as well as 12/27/2023 at 11 AM for 1 year follow-up) Ambulatory/Diagnostic Orders: Complete Blood Count w/diff [LAB.AMB] Location: None Selected Complete Blood Count w/diff [LAB.AMB] Location: None Selected Comprehensive Metabolic Panel [LAB.AMB] Location: None Selected Comprehensive Metabolic Panel [LAB.AMB] Location: None Selected Activity/Diet/Wound Care/Special Instructions: DISCHARGE INSTRUCTIONS: 1. No driving for 1 week, or until physician gives their ok. 2. No lifting, pushing, or pulling more than 5-10 pounds for 1 week. 3. Hold both groins when you cough or sneeze for the next 2 weeks. Bruising is common, but report increased swelling, pain or fever >101F 4. Shower daily. No pool, hot tub, or bathtub for 1 week 5. No powders, lotions, ointments on incisions. 6. No straining, including for bowel movements. Use stool softner if necessary 7. Stairs are not an issue. Go slowly, using handrail and take 1 step at a time. Ambulate several times daily 8. Continue pain control per as needed orders. 9. Take only the medications listed on your discharge form 10. Eat low salt (limited to 2 grams or 2000 milligrams) daily, avoid adding salt, avoid canned/processed foods 11. Take your weight daily in the morning and record, bring with you to your follow up appointments 12. Keep all follow up appointments. You will need a valve clinic appointment at 30 days and 1 year post procedure for follow up 13. You have been referred to and are expected to begin Cardiac Rehab in approximately 4 weeks. 14. You will need antibiotics prior to any dental work, including cleanings, and any surgeries to prevent Endocarditis (bacterial infection in your heart) For any questions or concerns please call your valve coordinators: Liza or Addi @ PATIENT EDUCATION MATERIAL Instructions following a heart rhythm device implant. 1. Keep dressing DRY for 5 DAYS. You may cover the area with Saran or Cling Wrap, prior to a shower. 2. The dressing will be removed in the Device Clinic at [facility]. Absorbable sutures were used to close the wound. 3. Avoid raising the left arm above the shoulder level. 4 week restriction 4. Avoid arm movements, like backscratching, rubbing the head, or pulling on a cord. 4 weeks restriction 5. Gentle range of motion movements of the shoulder, closest to the incision should be performed to avoid a frozen shoulder. (Pendulum exercises of the shoulder) 6. The opposite arm may be used freely. 7. Avoid driving for 7 days. 8. Avoid activities such as golfing, swimming, weed whacking, lifting more than 10 pounds weight, bowling, gymnastics and weight training/lifting. (6 weeks restriction) 9. Activities such as wood chopping with an axe, pull-ups in the gymnasium, power lifting, arc-welding, being close to home induction cooktops will always be a problem. 10. Arm sling is only a reminder not to raise the arm above the head. You do not need to keep the arm completely immobilized. Your free to move the arm and use it and for normal activities. In case of any problems, please call [facility], [place], @ [phone], Attention: Device Clinic Discharge Disposition: HOME SELF-CARE
[2023-01-29] MEDS ORDERED: metFORMIN 500 MG TAB PO SCH (17:30)
== END 2023-01-28 12:32 | disposition home or self-care (01) | DRG 267 ==
LOC: 2ORMAIN 05:54 → 2SICU 09:08 → 3SCARD 01-27 17:51
PROVIDERS: ADMIT Internal Medicine Interventional Cardiology; ATTEND Internal Medicine Interventional Cardiology
PROC: 5A1223Z Performance of Cardiac Pacing, Continuous (ICD-10-PCS; 2023-01-25)
PROC: 02HK3JZ Insertion of Pacemaker Lead into Right Ventricle, Percutaneous Approach (ICD-10-PCS; 2023-01-25)
PROC: B3101ZZ Fluoroscopy of Thoracic Aorta using Low Osmolar Contrast (ICD-10-PCS; 2023-01-25)
PROC: B24BZZ4 Ultrasonography of Heart with Aorta, Transesophageal (ICD-10-PCS; principal; 2023-01-25 07:30)
PROC: 02RF38Z Replacement of Aortic Valve with Zooplastic Tissue, Percutaneous Approach (ICD-10-PCS; principal; 2023-01-25 07:30)
PROC: 0JH606Z Insertion of Pacemaker, Dual Chamber into Chest Subcutaneous Tissue and Fascia, Open Approach (ICD-10-PCS; 2023-01-27)
PROC: 02H63JZ Insertion of Pacemaker Lead into Right Atrium, Percutaneous Approach (ICD-10-PCS; 2023-01-27)
PROC: 02HK3JZ Insertion of Pacemaker Lead into Right Ventricle, Percutaneous Approach (ICD-10-PCS; 2023-01-27)
DX: I35.0 Nonrheumatic aortic (valve) stenosis (principal); Z00.6 Encounter for examination for normal comparison and control in clinical research program; I44.2 Atrioventricular block, complete; E11.22 Type 2 diabetes mellitus with diabetic chronic kidney disease; I13.10 Hypertensive heart and chronic kidney disease without heart failure, with stage 1 through stage 4 chronic kidney disease, or unspecified chronic kidney disease; E66.01 Morbid (severe) obesity due to excess calories; I35.8 Other nonrheumatic aortic valve disorders; N18.9 Chronic kidney disease, unspecified; I25.10 Atherosclerotic heart disease of native coronary artery without angina pectoris; E78.5 Hyperlipidemia, unspecified; M10.9 Gout, unspecified; I44.0 Atrioventricular block, first degree; R60.0 Localized edema; Z68.35 Body mass index [BMI] 35.0-35.9, adult; Z95.5 Presence of coronary angioplasty implant and graft; Z79.84 Long term (current) use of oral hypoglycemic drugs; Z79.82 Long term (current) use of aspirin; Z79.899 Other long term (current) drug therapy; Z28.310 Unvaccinated for COVID-19; Z82.49 Family history of ischemic heart disease and other diseases of the circulatory system
CPT/HCPCS: 33208; 33361; 71045; 80048; 80053; 82330; 83036; 83735; 85025; 85027; 85610; 85730; 86850; 86900; 86901; 93306; 93312; 93320; 93325; 94760